=== PATIENT | male | born 1940 | race Caucasian/White ===

== ENCOUNTER 2023-10-16 20:59 | Inpatient (IN) | payer MEDICARE, SELFPAY ==
[2023-10-16 16:15] VITALS: BP 141/51
--- NOTE | 2023-10-16 17:41 | ED.GENMED ---
History of Present Illness
General
Chief Complaint: Musculo-Skeletal Complaint
Time Seen by Provider: 10/16/23 17:22
Travel History
Have you had any contact with someone who has COVID-19?: No
Do you have any symptoms of coronavirus? Fever > 100 degrees, chills, cough, shortness of breath, sore throat, loss of taste or smell, muscle aches, or headache?: No
History of Present Illness
History of Present Illness:
83-year-old male with history of A-fib, insulin-dependent diabetes, and hypertension presents the emergency department upon referral from his plant reliability engineer(Dr. Max) due to osteomyelitis of the left third toe. Has a prior amputation of the left
second toe. Has been following with wound care and apparently had a wound culture obtained late last week that was reportedly positive for MRSA. I do not have these records available to me at this time.
Past History
Past History
ED Past Medical History: Arrthythmia, Cancer, HTN and NIDDM
ED Past Surgical History: Orthopedic
Social History
Tobacco: Non-smoker
Alcohol: None
Drug: None
Personal:
Living: with family
Review of Systems
Review of Systems
Allergies reviewed?: Yes
All Other Systems: ROS reviewed and negative except as documented in HPI and ROS
Phy Exam
Physical Exam
Physical Exam:
GEN: Well appearing, NAD, WDWN
HEENT: Oral mucosa moist, no scleral icterus
Cardiac: Regular rate
Lung: No respiratory distress, no tachypnea
MSK: Status post amputation of the left second toe. Left third toe displays a severely macerated wound with exposed osseous tissue to the dorsal surface, diffuse tissue erythema. Left dorsalis pedis and tibial pulses are strong by Doppler
Skin: Good color, no pallor or jaundice, no rashes
Neuro: AO x3, moves all extremities freely
Psych: Calm, cooperative
Course
Orders/Labs/Results
Orders:
Orders
10/16/23 17:40
CR Foot - Left Min 3 Views Urgent
Comment:
Reason For Exam: L 3rd toe osteo
10/16/23 18:08
CRP [C-Reactive Protein] Urgent
Complete Blood Count/With Diff Urgent
Comprehensive Metabolic Panel Urgent
ESR [Erythrocyte Sed Rate] Urgent
Blood Culture Q30M
CARLITA Source: Blood/Venous
Specimen Description:
10/16/23 18:29
Blood Culture Q30M
CARLITA Source: Blood/Venous
Specimen Description:
10/16/23 19:21
Zosyn 3.375 grams IVPB NOW Piperacillin/Tazo 3.375 Gram [Zosyn] 3.375 gram in 50 ml IV NOW
10/16/23 20:00
*Vancomycin IV Pharmacy to Dose VANCOMYCIN Pharmacy to Dose [VANCOCIN Pharmacy to Dose] 1 each Pharmacy To Prepare [Call Pharmacy To Prepare] 0 ml IV PER PROTOCOL
Abnormal Lab Results
10/16/23
18:08
RBC 3.14 L 10^6/uL
(4.70-6.10)
Hgb 8.8 L g/dL
(13.0-18.0)
Hct 27.7 L %
(39.0-52.0)
MCHC 31.8 L g/dL
(33.0-37.0)
RDW 15.6 H %
(11.5-14.5)
Absolute Monos (auto) 0.8 H 10^3/uL
(0.1-0.6)
Monocytes % 9.5 H %
(1.7-9.3)
Eosinophils % 7.0 H %
(0-6)
ESR 91 H mm/hour
(0-20)
Sodium 133 L mmol/L
(135-145)
Glucose 129 H mg/dl
(70-99)
C-Reactive Protein 20.90 H mg/L
(0.0-10.00)
Albumin 3.3 L g/dl
(3.5-5.0)
10/16/23 18:08
10/16/23 18:08
Vital Signs
Initial and Last Documented VS:
Initial Vital Signs
Temp Pulse Resp BP Pulse Ox
98.0 F 76 18 141/51 100
10/16/23 16:15 10/16/23 16:15 10/16/23 16:15 10/16/23 16:15 10/16/23 16:15
Last Documented Vital Signs
Temp Pulse Resp BP Pulse Ox
98.0 F 72 18 142/70 99
10/16/23 16:15 10/16/23 19:07 10/16/23 19:07 10/16/23 19:07 10/16/23 19:07
MDM/Problems Addressed
MDM/Problems Addressed:
X-rays suggestive of osteolytic disease concerning for osteomyelitis. Will start the patient on broad-spectrum antibiotics, admit to the hospitalist service for further podiatry management
*Critical Care Note
Total Time (30-74mins, 75-104mins- exclusive of procedures): Not Applicable
ED Attending Note
-
Portions of this chart may have been created with voice recognition software.� Occasional wrong word or��sound alike� substitutions may have occurred due to the inherent limitations of voice recognition software.
Discharge Plan
Departure
Patient Disposition: Admit
Date of Disposition: 10/16/23
Time of Disposition: 19:29
Presentation/result/management discussed w/ accepting MD/DO: Hospitalist
Discharge Problem:
Osteomyelitis of third toe of left foot
Prescriptions:
No Action
metformin 500 mg tablet
1,000 mg PO BID@0800,1700
clopidogrel 75 mg tablet
75 mg PO DAILY
simvastatin 40 mg tablet
40 mg PO HS
warfarin 5 mg tablet
5 mg PO SUMOWETHFRSA@1800
losartan 100 mg tablet
100 mg PO DAILY
metoprolol tartrate 25 mg tablet
50 mg PO BID
insulin detemir U-100 100 unit/mL (3 mL) insulin pen
8 unit SC HS
Neupro 2 mg/24 hour patch 24 hour
2 mg topical HS
seqcqyzdy-ycydcdcw-sxyrrlagvh 50-200-200 mg tablet
1 tab PO QID
nifedipine 30 mg tablet extended release 24hr
30 mg PO DAILY
repaglinide 2 mg tablet
1 mg PO MEALS
acetaminophen 500 mg Tablet
500 mg PO Q6H PRN (Reason: mild pain)
warfarin 5 mg tablet
2.5 mg PO TU@1800
cholecalciferol (vitamin D3) [Vitamin D3] 50 mcg (2,000 unit) Tablet
50 mcg PO DAILY
docusate sodium 100 mg Capsule
100 mg PO BID Qty: 0 0RF
enoxaparin 100 mg/mL Syringe
100 mg SC Q12H Qty: 0 0RF
magnesium oxide 500 mg Tablet
500 mg PO DAILY Qty: 0 0RF
sennosides [Senna Laxative] 8.6 mg Tablet
8.6 mg PO HS Qty: 0 0RF
ciprofloxacin HCl 750 mg tablet
750 mg PO BID Qty: 20 0RF
amoxicillin 500 mg capsule
500 mg PO TID Qty: 20 0RF
Referrals:
Zak Hudson MD [Family Provider] -
Interventions
Interventions:
*Risk Screen - Suicide Last Done: 10/16/23 18:16
*General Assessment Last Done: 10/16/23 18:16
*Neglect/Abuse Screening Last Done: 10/16/23 18:16
ED- Fall Risk Assessment Last Done: 10/16/23 18:16
*ED COVID-19 Vaccine History Last Done: 10/16/23 18:16
ED-Musculoskeletal Assessment Last Done: 10/16/23 18:16
[2023-10-16 18:15] VITALS: BMI 32.6
[2023-10-16 18:15] LABS: % Basophils 0.7 % (0-2); % Immature Granulocytes 0.4 % (0-0.5); % Lymphocytes 21.1 % (20.5-51.1); % Monocytes 9.5 % (1.7-9.3); % Neutrophils 61.3 % (42.2-75.2); Absolute Basophils 0.1 10^3/uL (0-0.2); Absolute Eosinophils 0.6 10^3/uL (0-0.7); Absolute Lymphocytes 1.7 10^3/uL (1.2-3.4); Absolute Monocytes 0.8 10^3/uL (0.1-0.6); Hematocrit 27.7 % (39.0-52.0); Hemoglobin 8.8 g/dL (13.0-18.0); Mean Corp Hgb Conc. 31.8 g/dL (33.0-37.0); Mean Corpuscular Volume 88.2 fL (80.0-94.0); Nucleated Red Blood Cells % 0 % (-); Platelet Count 325 10^3/uL (130-400); Red Blood Cell Count 3.14 10^6/uL (4.70-6.10); Red Cell Dist. Width 15.6 % (11.5-14.5); White Blood Cell Count 8.2 10^3/uL (4.8-10.8)
[2023-10-16 18:23] LABS: Erythrocyte Sed Rate 91 mm/hour (0-20)
[2023-10-16 18:33] LABS: ALT (SGPT) < 10 U/L (0-50); AST (SGOT) 17 U/L (17-59); Albumin 3.3 g/dl (3.5-5.0); Alkaline Phosphatase 99 U/L (38-126); Blood Urea Nitrogen 16 mg/dl (9-20); Calcium 8.6 mg/dl (8.4-10.2); Carbon Dioxide 22 mmol/L (22-30); Chloride 107 mmol/L (98-107); Estimated Creatinine Clearance 96 ml/min; Glucose 129 mg/dl (70-99); Potassium 4.5 mmol/L (3.5-5.1); Sodium 133 mmol/L (135-145); Total Bilirubin 0.6 mg/dl (0.2-1.3); Total Protein 6.6 g/dl (6.3-8.2); eGFR > 60.00
[2023-10-16 19:07] VITALS: BP 142/70
--- NOTE | 2023-10-16 19:42 | HPS.HSE ---
Addendum entered and electronically signed by Simon Dominguez MD 10/16/23 21:00:
Recent wound culture from podiatry office grew MRSA.
Addendum entered and electronically signed by Simon Dominguez MD 10/16/23 20:55:
Correction- Patient not on plavix.
Addendum entered and electronically signed by Simon Dominguez MD 10/16/23 20:51:
Patient seen and examined independently with MANAGER OF MEDICAL. 83-year-old male past medical history of atrial fibrillation not on Coumadin anymore, diabetes, diabetic neuropathy, hypertension, prior recent amputation of second left toe, peripheral vascular
disease status post recent shockwave lithotripsy of the posterior tibial artery stenosis, balloon angioplasty of distal posterior tibial artery stenosis/left peroneal artery, Parkinson's disease, obstructive sleep apnea, presenting with infected
third left toe concerning for osteomyelitis. Labs show progressive worsening of hemoglobin from 12 in January to 8.8 at this time.
Foot x-ray pending. Check blood cultures, wound culture. Vancomycin and Zosyn. Podiatry consulted for likely debridement. Continue aspirin, hold Plavix. Vascular surgery consulted. Check iron studies, B12 and folate, fecal occult.
Original Note:
Family Physician
-
Family Physician: Zak Hudson
Chief Complaint
-
left third toe infection
History of Present Illness
83-year-old male with history of A-fib, insulin-dependent diabetes, and hypertension presents the emergency department upon referral from his tobacco drummer(Dr. Max) due to osteomyelitis of the left third toe.� patient stated small wound on third
toe for past few months, which got worse over the months. patient was supposed to get wound care at [facility], not sure if he got it. Has a prior amputation of the left second toe.� Has been following with podiatry. Biopsy obtained last week and
sent home on abx. today he was evaluated by podiatry again. his wound got worse with foul smelling. noted painful, red and swollen. wound culture were positive for MRSA. send them to ER for vascular eval and IV abx. Patient denied any fever chills.
Patient denied headache, dizziness, syncopal episode. Patient denied chest pain or short of breath. Patient denied abdominal pain, nausea, vomiting, diarrhea. Patient denied dysuria hematuria
Patient received a dose of Vanco and Zosyn in ER. Admitting for further management.
Medical History
Past Medical History
Past Medical History: Reports Other
Additional Past Medical History:
Atrial fibs
Hypertension
Type 2 diabetes
Diabetic neuropathy
peripheral vascular disease
Osteomyelitis of left second toe status post amputation on 02/12 for gangrene
Parkinson's
Past Surgical History: Reports Other
Additional Past Surgical History:
Amputation left second toe
Social History
Tobacco: Former Smoker
Alcohol: None
Drug: None
Personal:
Living: Assisted Living
Family History
Family History: Not pertinent
Allergies / Home Medications
Allergies reflects when Allergies were last updated in [facility].
Home Medications with original date entered in [facility]
Allergy/Medication List:
Allergies
Allergy/AdvReac Type Severity Reaction Status Date / Time
No Known Allergies Allergy Verified 10/16/23 18:22
Home Medications
acetaminophen 500 mg tablet 1,000 mg PO Q8H PRN mild pain 02/11/23
carbidopa 50 mg-levodopa 200 mg-entacapone 200 mg tablet 1 tab PO QID Neurological Condition 02/11/23
rotigotine 2 mg/24 hour transdermal 24 hour patch (Neupro) 2 mg topical HS Neurological Condition 02/11/23
simvastatin 40 mg tablet 40 mg PO HS High Cholesterol 02/11/23
aspirin 81 mg chewable tablet 81 mg PO DAILY 10/16/23
diltiazem HCl 30 mg tablet 30 mg PO BID 10/16/23
doxycycline hyclate 100 mg tablet 100 mg PO BID 10/16/23
losartan 50 mg tablet 50 mg PO DAILY 10/16/23
magnesium hydroxide 400 mg/5 mL oral suspension (Milk of Magnesia) 15 ml PO Q72H PRN constipation 10/16/23
melatonin 5 mg tablet 5 mg PO HS 10/16/23
metformin 1,000 mg tablet 1,000 mg PO BID 10/16/23
mupirocin 2 % topical ointment 1 applic topical QPM 10/16/23
sennosides 8.6 mg tablet (Senna Laxative) 17.2 mg PO HS Constipation 10/16/23
Review of Systems
-
Constitutional: Reports No Symptoms
EENT: Reports No Symptoms
Respiratory: Reports No Symptoms
Cardiac: Reports No Symptoms
Abdomen/GI: Reports No Symptoms
: Reports No Symptoms
Musculoskeletal: Reports No Symptoms
Skin: Reports Other (left third toe wound)
Neurological: Reports No Symptoms
Endocrine: Reports No Symptoms
Hematologic/Lymphatic: Reports No Symptoms
Psych: Reports No Symptoms
Physical Exam
Vital Signs
Vital Signs
Temp Pulse Resp BP Pulse Ox
98.0 F 72 18 142/70 99
10/16/23 16:15 10/16/23 19:07 10/16/23 19:07 10/16/23 19:07 10/16/23 19:07
Physical Exam
General: Well Developed, Well Nourished and No Apparent Distress
HEENT: NormoCephalic, Moist mucous membranes and Atraumatic
Respiratory: Clear
Cardiac: S1/S2 and Regular Rhythm; No Murmur or Rub
GI: Soft, Non Tender, Non Distended and Normal Bowel Sounds; No Organomegaly
Rectal: Deferred by Provider
Musculoskeletal: No Clubbing, No Cyanosis and No Edema
Skin: Rash and Other (left third toe wound, red, swollen)
Neuro: AO x 3 and Nonfocal/grossly intact
Psych: Calm
Laboratory Results
-
10/16/23 18:08
10/16/23 18:08
Laboratory Results
Total Bilirubin 0.6 mg/dl (0.2-1.3) 10/16/23 18:08
AST 17 U/L (17-59) 10/16/23 18:08
ALT < 10 U/L (0-50) 10/16/23 18:08
Alkaline Phosphatase 99 U/L (38-126) 10/16/23 18:08
Data Reviewed
-
Lab Data: Labs Reviewed by me
Impression/Plan
-
#osteo of left third toe/hxt of PAD/ hxt of peripheral neuropathy
#hx tof left 2nd to amputation
#hxt of Aortobiiliac angiogram + LLE angiogram + shockwave L PT (3x40mm) + balloon angioplasty L PT and L peroneal artery (03/27/2023)
-wound culture positive for MRSA
-ESR 91, CRP 20.90
-outpatient culture positive for MRSA
-foot x ray pending
-blood culture sent from ER
-zosyn , vanco continued
-podiatry consulted
-vascular consulted
#acute on chronic anemia
-hgb 8.8
-no active bleeding
-ctm
#Chronic atrial fibrillation
-Continue Cardizem
-obtain EKG
#Essential hypertension
-Continue , losartan
#Type 2 diabetes
-Insulin sliding scale
#Hyperlipidemia
-simvastatin
#Peripheral vascular disease
-Plavix ,Statin, asa
#Parkinson's disease
-Continue home rlnfzvdje-tivqyydg-cahudtutdy (Stalevo)
-Continue Neupro
#EAMON- CPAP
#H/O Right eye malignancy -
#Ex Smoker
#Chronic gait dysfunction
#Full code
#DVT prophylaxis� Lovenox
--- NOTE | 2023-10-16 20:05 | PTCARENOTE ---
Received patient from ED into room 2121. Patient ambulated to bed from doorway, patient was unsteady with x1 assist and walker. Patient has wound/infection to L foot third toe. This RN applied dry gauze and secured with tape to cover wound until
further orders can be placed. L foot second toe amputation, R foot second and third toe amputation, R foot great toe half amputation. 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 AAOx2; forgetful to time. Confused at times, bed alarm in
place. Trace edema to b/l LE, clear but diminished lungs. L AC IV. Patient resting comfortably in bed with call ashley within reach.
[2023-10-16] MEDS: ZOSYN 50 IV (20:17)
[2023-10-16] MEDS: VANCOCIN 540 MG IV (21:32)
[2023-10-16 23:11] VITALS: BP 170/82; BMI 30.5
[2023-10-16 23:12] LABS: Iron 38 ug/dl (49-181)
[2023-10-16] MEDS: SENOKOT 17.1999999999999993 MG PO (23:17)
[2023-10-16] MEDS: NEUPRO 2 MG TOPICAL (23:17)
[2023-10-16] MEDS: MELATONIN 5 MG PO (23:17)
[2023-10-16] MEDS: LIPITOR 20 MG PO (23:17)
[2023-10-16 23:22] LABS: Percent Saturation 15 % (20-50); Total Iron Binding Capacity 239 ug/dl (261-462)
[2023-10-16 23:50] VITALS: BMI 30.5
[2023-10-17 00:05] LABS: Ferritin 48.5 ng/ml (17.9-464.0)
[2023-10-17] MEDS: TYLENOL 650 MG PO (00:30)
[2023-10-17 00:36] LABS: Folate 10.8 ng/ml (2.76-20); Vitamin B12 252 pg/ml (239-931)
--- NOTE | 2023-10-17 01:20 | PTCARENOTE ---
Respiratory set up CPAP for patient. Was applied around 00:30 due to waiting for medications. Patient fell asleep quickly and removed his CPAP. This RN woke him up and asked if he wanted it back on, patient refused. Educated importance, pt slightly
confused/disoriented, still refused. Notified respiratory therapist. Turned off machine and moved it away from patient. Patient back to sleep and resting comfortably. Bed alarm in place.
[2023-10-17] MEDS: ZOSYN 50 IV ×4 (01:48→19:57)
[2023-10-17 05:07] VITALS: BMI 30.5
[2023-10-17 06:13] LABS: Hematocrit 27.2 % (39.0-52.0); Hemoglobin 9.1 g/dL (13.0-18.0); Mean Corp Hgb Conc. 33.5 g/dL (33.0-37.0); Mean Corpuscular Hgb 28.3 pg (27.0-31.0); Mean Corpuscular Volume 84.7 fL (80.0-94.0); Mean Platelet Volume 9.8 fL (7.4-10.4); Platelet Count 296 10^3/uL (130-400); Red Blood Cell Count 3.21 10^6/uL (4.70-6.10); Red Cell Dist. Width 15.3 % (11.5-14.5); White Blood Cell Count 8.6 10^3/uL (4.8-10.8)
[2023-10-17 06:35] LABS: Blood Urea Nitrogen 14 mg/dl (9-20); Calcium 8.6 mg/dl (8.4-10.2); Carbon Dioxide 22 mmol/L (22-30); Chloride 110 mmol/L (98-107); Estimated Creatinine Clearance 81 ml/min; Glucose 134 mg/dl (70-99); Sodium 136 mmol/L (135-145); eGFR > 60.00
[2023-10-17 07:03] VITALS: BP 141/72
[2023-10-17 07:16] LABS: Glucose - Point of Care 145 mg/dl (70-99)
--- NOTE | 2023-10-17 07:53 | W.CS.POD ---
Consult Summary - Podiatry
-
Patient known to me from outpatient care.
PMHx includes Parkinsons disease, DM2 with PAD and peripheral neuropathy with LOPS
Presented to my office last week with wound that demonstrated deterioration to his toe-bone culture taken and biopsy which demonstrated MRSA bone and path +chronic and acute OM to the prox phalynx. xray negative. Patient was placed on doxy 100po BID
and follow up 5 d later in office there was noted rapid deterioration to gangrene and cellulitis of the toe. Patient sent to ED for admission for vascular follow up w/Dr Pérez as welll as Amp of the left 3rd toe
NPO orders written. Will add to OR schedule for today, however, may require vascular intervention prior to amp. Will defer to Dr Pérez.
Full consult to follow
--- NOTE | 2023-10-17 08:31 | PHA.VAN.IN ---
Assessment
- Assessment
Renal Function: Appears similar to baseline
Concomitant Antimicrobials: piperacillin/tazobactam
AUC Dosing Plan
- Dosing Variables
Dosing Weight (kg): 99
Dosing CrCl (ml/min): 81
Vd coefficient (L/kg): 0.6-0.7
- Empiric Dosing
Initial / Loading Dose: 2000mg - 10/15 21:32
Maintenance Regimen: Vanc 1000mg Q12H starting at 1800
Estimated AUC (mcg*h/mL): 417 - 487
Estimated Peak (mcg*h/mL): 25 - 29.2
Estimated Trough (mcg/ml): 11.4 - 13.3
Estimated Half Life (H): 9.7
- Monitoring
No levels ordered at this time: consider levels in next few days
Pharmacokinetics Vancomycin I
- -
Patient Age: 83
Patient Sex: Male
Vancomycin Day #: 1
Indication: Skin And Soft Tissue
Requesting Provider: Do Torres
Pertinent Antimicrobial Allergies:
NKDA
Height / Weight:
Height 5 ft 11 in
Actual Weight 99.065 kg
Pertinent Past Medical History: BMI ~30.5, DM2, PAD, Parkinson's
- Vital Signs / Lab Results
Temp Pulse Resp BP Pulse Ox
98.4 F 101 16 141/72 99
10/17/23 07:03 10/17/23 07:03 10/17/23 07:03 10/17/23 07:03 10/17/23 07:03
Lab Results - Hematology
10/16/23 10/17/23
18:08 05:59
WBC 8.2 8.6
Lab Results - Chemistry
10/16/23 10/17/23
18:08 05:59
BUN 16 14
Creatinine 0.7 0.8
Estimated Creat Clear 96 81
Albumin 3.3 L
[2023-10-17] MEDS: NOVOLOG FLEXPEN-LOW RESISTANCE SC ×3 (08:41→12:50)
[2023-10-17] MEDS: LOW STRENGTH ASPIRIN 81 MG PO (08:42)
[2023-10-17] MEDS: COZAAR 50 MG PO (08:42)
[2023-10-17] MEDS: SINEMET CR 50/200 (EXTENDED RELEASE) 1 TABLET PO ×4 (08:42→21:56)
[2023-10-17] MEDS: GLUCOPHAGE 1000 MG PO ×2 (08:42→19:56)
[2023-10-17] MEDS: HEPARIN 5000 UNITS SC ×2 (08:43→19:55)
[2023-10-17] MEDS: COMTAN 200 MG PO ×4 (08:44→21:56)
[2023-10-17] MEDS: CARDIZEM 30 MG PO ×2 (08:45→19:56)
[2023-10-17 09:49] LABS: Glycohemoglobin (HgbA1c) 6.6 % (4.0-5.6)
--- NOTE | 2023-10-17 10:10 | CON.VAS ---
Addendum entered and electronically signed by Carson Ennis MD 10/17/23 11:33:
Seen and examined with ADAN Mario. Agree with findings as noted below. 83-year-old male with extensive medical history as noted below. Known to our service. History of left-sided vascular intervention at [facility]. Subsequent intervention
here. Following that he was able to heal left second toe amputation. Then more recently patient developed left third toe gangrenous/ischemic changes. Per patient he thought he had another intervention subsequently at [place]. On exam he has
bilateral palpable femoral pulses. Nonpalpable distally. Left foot/third toe as pictured below. Note the changes compared to last office visit. Plan/patient with gangrene/likely exposed bone third toe. Likely will require third toe amputation.
Question perfusion adequacy for wound healing. Obtain noninvasive arterial lower extremity imaging. Then we will plan angiography likely Sunday. Consult podiatry for toe management.
Original Note:
Medical History
-
History of Present Illness:
83 years old male with significant past medical history for hypertension, DM, PAD, and Parkinson, who presented to [facility] on 10/15 reporting nonhealing left third toe wound for 'many months'. Patient is a poor historian, but does admit
to recent angiogram with intervention on the left side at [facility] for the current left toe wound. Last admission patient underwent left lower extremity intervention by Dr. Pérez. He follows/followed with Dr. Natividad Monsalve at [place]
vascular surgery. Non-invasive studies last completed at [facility] in July. Patient last seen in our vascular office September 03, 2023. Image below from office note. The following image from today's consultation.
Vascular history:
02/07/23- LLE [facility]
03/27/23- Shockwave left posterior tibial artery stenosis (3 mm x 40 mm shockwave balloon), Balloon angioplasty to distal posterior tibial artery stenoses (3 mm x 40 mm angioplasty balloon), Balloon angioplasty to left peroneal artery stenoses (3 mm
x 40 mm angioplasty balloon)
07/2023(unsure of date)- agram with intervention at outside hospital-records requested
Vascular consult today for nonhealing left third toe wound. Patient seen at bedside this a.m. with Dr. Ennis.
Left 3rd toe (from 09/03/23 office visit)
Left third toe TODAY
Past Medical History
Past Medical History: Arrhythmias (afib, not on coumadin anymore?), Cancer, HTN, IDDM and Other (PAD, parkinsons)
Past Surgical History: Other (Right 1-3rd toe amps, left 2nd toe amp)
Social History
Tobacco: Former Smoker
Alcohol: None
Drug: None
Personal:
Living: Assisted Living
Employment: Retired
Family History
Family History: Reviewed & Not Pertinent
Allergies / Home Medications
Allergy/AdvReac Type Severity Reaction Status Date / Time
No Known Allergies Allergy Verified 10/16/23 18:22
Medication Instructions Recorded Confirmed Type
acetaminophen 500 mg tablet 1,000 mg PO Q8H PRN mild pain 02/11/23 10/16/23 History
carbidopa 50 mg-levodopa 200 1 tab PO QID Neurological Condition 02/11/23 10/16/23 History
mg-entacapone 200 mg tablet
rotigotine 2 mg/24 hour 2 mg topical HS Neurological 02/11/23 10/16/23 History
transdermal 24 hour patch (Neupro) Condition
simvastatin 40 mg tablet 40 mg PO HS High Cholesterol 02/11/23 10/16/23 History
aspirin 81 mg chewable tablet 81 mg PO DAILY 10/16/23 10/16/23 History
diltiazem HCl 30 mg tablet 30 mg PO BID 10/16/23 10/16/23 History
doxycycline hyclate 100 mg tablet 100 mg PO BID 10/16/23 10/16/23 History
losartan 50 mg tablet 50 mg PO DAILY 10/16/23 10/16/23 History
magnesium hydroxide 400 mg/5 mL 15 ml PO Q72H PRN constipation 10/16/23 10/16/23 History
oral suspension (Milk of Magnnan)
melatonin 5 mg tablet 5 mg PO HS 10/16/23 10/16/23 History
metformin 1,000 mg tablet 1,000 mg PO BID 10/16/23 10/16/23 History
mupirocin 2 % topical ointment 1 applic topical QPM 10/16/23 10/16/23 History
sennosides 8.6 mg tablet (Senna 17.2 mg PO HS Constipation 10/16/23 10/16/23 History
Laxative)
Review of Systems
-
History Source: Patient
All other systems: Negative unless noted
Constitutional: Reports No Symptoms
EENT: Reports No Symptoms
Respiratory: Reports No Symptoms
Cardiac: Reports No Symptoms
Vascular: Denies Leg Pain / Claudication
Abdomen/GI: Reports No Symptoms
: Reports No Symptoms
Musculoskeletal: Reports Edema
Skin: Reports Other (Left third toe wound)
Neurological: Reports No Symptoms
Endocrine: Reports No Symptoms
Physical Exam
Vital Signs
Temp Pulse Resp BP Pulse Ox
98.4 F 101 16 141/72 99
10/17/23 07:03 10/17/23 08:45 10/17/23 07:03 10/17/23 08:45 10/17/23 07:03
Lab Results
10/17/23 05:59
10/17/23 05:59
Physical Exam
General: No Apparent Distress
HEENT: Normocephalic and Atraumatic
Respiratory: Non Labored Respirations
Cardiac: Negative JVD
GI: Soft, Non Tender and Non Distended
Musculoskeletal: No Clubbing, No Cyanosis and Edema (BL LE +1)
Skin: Warm, Dry and Other (See images above)
Neuro: Awake, Alert and Oriented
Psych: Calm
Pulses: Bilateral Femoral: +2, Bilateral Popliteal: +1 and Bilateral Posterior Tibial: Doppler (nonpalpable)
Assessment / Plan
-
83-year-old male with left third toe nonhealing wound, known PAD
Plan:
-Arterial US, will follow-up after study
-Podiatry following
-Antibiotics
-Local wound care
-Seen and assessed with Dr. Ennis
--- NOTE | 2023-10-17 11:32 | W.PN.HOSP.TC ---
Today's Communication/Plan
-
see A/P
Assessment / Plan
Assessment / Plan
83-year-old male past medical history of atrial fibrillation not on Coumadin anymore, diabetes, diabetic neuropathy, hypertension, prior recent amputation of second left toe, peripheral vascular disease status post recent shockwave lithotripsy of
the posterior tibial artery stenosis, balloon angioplasty of distal posterior tibial artery stenosis/left peroneal artery, Parkinson's disease, obstructive sleep apnea, presented with infected third left toe concerning for osteomyelitis.�Labs show
progressive worsening of hemoglobin from 12 in January to 8.8 at this time.�
A/P:
# L foot cellulitis with 2nd metatarsal acute osteomyelitis, 3rd toe acute osteomyelitis
# h/o PAD/ peripheral neuropathy
# h/o left 2nd toe amputation
Foot XR with 2nd metatarsal acute osteomyelitis, 3rd toe acute osteomyelitis
vascular on board, check arterial LE US and plan angiography likely Sunday.�
Podiatry on board, plan for OR
ID consulted
Follow blood Cx
zosyn , vanco was started, cont for now
# Chronic atrial fibrillation
Continue Cardizem
# Essential hypertension
Continue Cardizem, losartan
BP controlled
# Type 2 diabetes
Insulin sliding scale
# Hyperlipidemia
simvastatin
# Peripheral vascular disease
ASA, Plavix, Statin
# Parkinson's disease
Continue home thquqokcq-dzznuhmv-iyptenocdw (Stalevo)
Continue Neupro
# EAMON- CPAP
# H/O Right eye malignancy
# Ex Smoker
# Chronic gait dysfunction
Full code
DVT prophylaxis� Lovenox
DW vascular
DW Podiatry
total time spent 51 min
Anticipated Discharge: > 48 hours
Subjective/Interval History
-
Date of Service: October 17, 2023
Objective Data
-
Labs:
Laboratory Results
10/17/23
05:59
WBC 8.6
Hgb 9.1 L
Hct 27.2 L
Plt Count 296
Sodium 136
Potassium 4.0
Chloride 110 H
Carbon Dioxide 22
BUN 14
Creatinine 0.8
Glucose 134 H
Calcium 8.6
Vital Signs:
Vital Signs
Temp Pulse Resp BP Pulse Ox
36.9 C 101 16 141/72 99
10/17/23 07:03 10/17/23 08:45 10/17/23 07:03 10/17/23 08:45 10/17/23 07:03
I&O
10/16/23 10/17/23 10/18/23
06:59 06:59 06:59
Intake Total 480 / 480
Output Total 700 / 700
Balance -220 / -220
Review of Systems
-
All other systems: Reviewed and negative
Physical Exam
-
General: Well Developed, Well Nourished, No Apparent Distress, Comfortable and Conversant; Negative Respiratory Distress
HEENT: Normocephalic, Atraumatic, Nose Appears Normal and Ears Appear Normal; Negative Oxygen
Respiratory: Clear to Auscultation and Non Labored Respirations; Negative Accessory Resp Muscle Use
Cardiac: Regular Rhythm and S1/S2
GI: Soft, Nontender, Nondistended and Normal Bowel Sounds
Skin: Warm, Dry and Other (L necrotic third toe )
Neuro: Awake, Alert, Oriented, AO x 3 and Nonfocal/Grossly Intact
Psych: Calm and Intact Judgement/Insight
Data Reviewed
-
Diagnostic Radiology: Report Reviewed by me
Labs: Labs Reviewed by me
--- NOTE | 2023-10-17 12:40 | CON.MD ---
Consultation - Medical
-
Consultation performed 10/17/23 by Devi Max DPM
Consult requested 10/16/2023
Medical History
Chief Complaint
left foot gangrene
History of Present Illness
This is an 83 year old male with significant past medical history for hypertension, DM, PAD, and Parkinson, who I sent to [facility] ED on 10/15 from my office after rapid deterioration and failed outpatient treatment of wound left 3rd toe.
On 10/10 bone biopsy/culture was noted to return + MRSA. Patient did not have cellulitis or gangrene at that time however bone was palpable and exposed and pt placed on DOXY 100 po BID, He had an appt pending w/Dr Pérez for 10/24, but was seen 10/15
for office follow up with cellulitis and gangrene left 3rd toe and sent to the ED. I will follow for amputation of hte left 3rd toe
Past Medical / Surgical History
Prev toe amps as result of OM to toes and PAD, REvasc to B/L LEs in the past, DM2 with DPN and LOPS, Parkinsons disease, Afib
Medications
�Medication �Instructions �Recorded �Confirmed �Type
acetaminophen 500 mg tablet 1,000 mg PO Q8H PRN mild pain 02/11/23 10/16/23 History
carbidopa 50 mg-levodopa 200 1 tab PO QID Neurological Condition 02/11/23 10/16/23 History
mg-entacapone 200 mg tablet � � � �
rotigotine 2 mg/24 hour 2 mg topical HS Neurological 02/11/23 10/16/23 History
transdermal 24 hour patch (Neupro) Condition � � �
simvastatin 40 mg tablet 40 mg PO HS High Cholesterol 02/11/23 10/16/23 History
aspirin 81 mg chewable tablet 81 mg PO DAILY 10/16/23 10/16/23 History
diltiazem HCl 30 mg tablet 30 mg PO BID 10/16/23 10/16/23 History
doxycycline hyclate 100 mg tablet 100 mg PO BID 10/16/23 10/16/23 History
losartan 50 mg tablet 50 mg PO DAILY 10/16/23 10/16/23 History
magnesium hydroxide 400 mg/5 mL 15 ml PO Q72H PRN constipation 10/16/23 10/16/23 History
oral suspension (Milk of Magnesia) � � � �
melatonin 5 mg tablet 5 mg PO HS 10/16/23 10/16/23 History
metformin 1,000 mg tablet 1,000 mg PO BID 10/16/23 10/16/23 History
mupirocin 2 % topical ointment 1 applic topical QPM 10/16/23 10/16/23 History
sennosides 8.6 mg tablet (Senna 17.2 mg PO HS Constipation 10/16/23 10/16/23 History
Laxative) � � � �
Physical Exam
Vital Signs
Temp Pulse Resp BP Pulse Ox
�98.4 F �101 �16 �141/72 �99
�10/17/23 07:03 �10/17/23 08:45 �10/17/23 07:03 �10/17/23 08:45 �10/17/23 07:03
Lab Results
10/17/23 05:59�
10/17/23 05:59�
Physical Exam
Allergies
NKDA
Social / Family History
SH-
Presently resides at [facility] since DC from [facility]. . Former smoker, soc ETOH
Review of Systems
-
History Source: Patient
All other systems: Negative unless noted
Constitutional: Reports No Symptoms
EENT: Reports No Symptoms
Respiratory: Reports No Symptoms
Cardiac: Reports No Symptoms
Vascular: Denies Leg Pain / Claudication
Abdomen/GI: Reports No Symptoms
: Reports No Symptoms
Musculoskeletal: Reports Edema
Skin: Reports Other (Left third toe wound)
Neurological: Reports No Symptoms
Endocrine: Reports No Symptoms
Vital Signs / Labs
-
Vital Signs and Labs:
Temp Pulse Resp BP Pulse Ox
98.4 F 101 16 141/72 99
10/17/23 07:03 10/17/23 08:45 10/17/23 07:03 10/17/23 08:45 10/17/23 07:03
10/17/23 05:59
10/17/23 05:59
10/16/23 10/17/23 10/17/23
18:08 05:59 07:15
RBC 3.14 L 3.21 L
Hgb 8.8 L 9.1 L
Hct 27.7 L 27.2 L
MCHC 31.8 L
RDW 15.6 H 15.3 H
Absolute Monos (auto) 0.8 H
Monocytes % 9.5 H
Eosinophils % 7.0 H
ESR 91 H
Sodium 133 L
Chloride 110 H
Glucose 129 H 134 H
Hemoglobin A1c 6.6 H
Iron 38 L
TIBC 239 L
% Saturation 15 L
C-Reactive Protein 20.90 H
Albumin 3.3 L
POC Glucose 145 H
Physical Exam
Vital Signs
Vital Signs
Temp Pulse Resp BP Pulse Ox
98.4 F 101 16 141/72 99
10/17/23 07:03 10/17/23 08:45 10/17/23 07:03 10/17/23 08:45 10/17/23 07:03
Physical Exam
General:
AAo x 3, elderly in NAD, conversant
Other: LE FOCUSED exam: Pedal pules are non palpable, integ dry, scaly, poor cap refill. amp left 2nd toe, right 2,3 toes. Gangrene left 3rd toe with exposed bone, improved cellulitis left foot
Heels intact and no other breakdown to legs/feet at this time
Assessemnt/Plan
-
DM2 with PAD- Dr Ennis to follow, sched non invasives this week and angio
DM2 with DPN and LOPS
Gangrene and osteomyelitis left 3rd toe- will cancel surgery for tday and await revasc if needed to give best chance of healing the amp site.
Will follow for timing of amp this week fri/sat
[2023-10-17 12:48] LABS: Glucose - Point of Care 128 mg/dl (70-99)
--- NOTE | 2023-10-17 13:18 | CON.ID ---
Consultation
-
Date/Time Consultation Requested: 10/17/23 7:38
Date/Time Consultation Performed: 10/17/23 13:33
Requesting Provider: Dr Weldon
Performing Provider: Dr Camargo
Reason for Consultation: diabetic foot infection
Chief Complaint / Past History
Chief Complaint
left third toe infection
History of Present Illness
Mr Baird is an 83 year old male with history notable for osteomyelitis of the L third toe, previous L second toe amputation, diabetic foot infection, DM2 who presented here yesterday for a several month history of a wound on the third toe. 10/10
bone biopsy/culture with MRSA outpatinet; there was palpable bone but no cellulitis or gangrene; he was started on doxycycline 100 mg PO BID; he had a pending vascular surgery appointment however developed progression outpatient and was referred to
the ER.Recently he has noted increased redness and swelling of the toe, a supericial wound culture grew MRSA. No fevers or chills. No: chest pain, shortness of breath, abdominal pain, nausea, vomiting, diarrhea, dysuria or hematuria.
Since arrival here he has been afebrile, bp stable, wbc 8.6, hgb 9.1, plt 296, no left shift,esr 91, cr 0.8, a1c 6.6, crp 20, an arterial study has been done but not yet read, foot xray: 'Progressive osseous erosion of the lateral side of the head
of the 2nd metatarsal suspicious for acute osteomyelitis. Previous amputation of the left 2nd toe. 2. � Plantar dislocation of the distal phalanx of the 3rd toe and subluxation of the middle phalanx with severe widening of the lateral side of the
PIP joint. Suspected acute osteomyelitis in the dorsal cortex of the middle phalanx of the 3rd toe.
3. � Severe cellulitis throughout the left foot.'
Past History
Additional Past Medical History:
afib, Cancer, HTN, IDDM and Other (PAD, parkinsons)
Additional Past Surgical History:
(Right 1-3rd toe amps, left 2nd toe amp)
vascular intervention on the L leg
Allergy History:
No Known Allergies Allergy (Verified 10/16/23 18:22)
Medications Reviewed: Yes
Social History
Tobacco: Former Smoker
Alcohol: None
Drug: None
Family History
Family History: Not Pertinent
Review of Systems
Review of Systems
General: Negative Fever or Chills
All systems: All other systems were reviewed and were negative
Vital Signs
Temp Pulse Resp BP Pulse Ox
98.4 F 101 16 141/72 99
10/17/23 07:03 10/17/23 08:45 10/17/23 07:03 10/17/23 08:45 10/17/23 07:03
Physical Exam
Physical Exam
Constitutional: No Acute Distress, Chronically Ill and Obese
Cardiovascular: Regular Rate and S1/S2; Negative Murmur or Rub
Pulmonary: Clear and Symmetric; Negative Wheezes, Rales or Rhonchi
Gastrointestinal: Soft, Non Tender, Non Distended and Normal Bowel Sounds
Skin: Warm and Dry; Negative Rash or Jaundice
Lab / Diagnostic Study Results
10/17/23 05:59
10/17/23 05:59
Abs Immat Gran (auto) 0.0 10^3/uL (0-0.05) 10/16/23 18:08
Absolute Neuts (auto) 5.0 10^3/uL (1.4-6.5) 10/16/23 18:08
Absolute Lymphs (auto) 1.7 10^3/uL (1.2-3.4) 10/16/23 18:08
Absolute Monos (auto) 0.8 10^3/uL (0.1-0.6) H 10/16/23 18:08
Absolute Basos (auto) 0.1 10^3/uL (0-0.2) 10/16/23 18:08
Immature Gran % 0.4 % (0-0.5) 10/16/23 18:08
Neutrophils % 61.3 % (42.2-75.2) 10/16/23 18:08
Lymphocytes % 21.1 % (20.5-51.1) 10/16/23 18:08
Monocytes % 9.5 % (1.7-9.3) H 10/16/23 18:08
Eosinophils % 7.0 % (0-6) H 10/16/23 18:08
Basophils % 0.7 % (0-2) 10/16/23 18:08
ESR 91 mm/hour (0-20) H 10/16/23 18:08
C-Reactive Protein 20.90 mg/L (0.0-10.00) H 10/16/23 18:08
Microbiology Results
Micro:
10/17/23 00:12 MRSA Screen - Pending
Nose
10/16/23 18:29 Blood Culture - Pending
Blood/Venous
10/16/23 18:08 Blood Culture - Pending
Blood/Venous
Assessment / Plan
Suspected Osteomyelitis 3rd distal phalanx, middle phalanx
- bone culture by report with MRSA
Suspected osteomyelitis 2nd metarasal head - lateral aspect
Cellulitis
Dm2
PAD
- my office will request the bone culture results
- note concern for osteomyelitis of the 3nd phalanx and 2nd metatarsal head; could consider MRI if clinical picture unclear
- mrsa screen in progress - even if negative would not stop mrsa coverage given recent report
- blood cultures x2 in progress
- a1c pending
- continue vancomycin and zosyn for now - may require a long course of IV antibiotics if there is concern for residual infection after the 3rd digit amputation
- follow clinically
--- NOTE | 2023-10-17 13:43 | CM ---
Addendum entered by Newton Montenegro 10/17/23 16:19:
HH [facility]. Donna is following patient # [phone].
Original Note:
Attempted initial assessment with patient who was unable to answer some questions and deferred to daughter, Destiny, who is also POA. Initial assessment completed with Destiny. Patient and reside in [facility] in [place]. They reside in a 3rd floor apartment in an elevator building with no stairs to enter. and 4 daughters are support system along with [facility] staff. Patient has a rollator, RW, W/CH and SC. Patient had HH services, VN and PT, through
[facility] ([phone]) through the [facility].
Patient has been in and out of hospital and SNF's for a few months. Most recently, he was at [facility] immediately prior to admission to . He has had some cognitive difficulties and forgetfulness recently. Destiny is considering patient go to a
different SNF instead of [facility] after discharge. Pharmacy is [facility] through the [facility] and PCP is Dr. Anastacio Morales. MD listed in records as PCP is the MD at [facility].
Destiny said patient was doing fairly well at [facility] in PT: Tolerated 45 minutes of therapy and walked 150 feet but needed alot of supervision for safety awareness.
Destiny's # is [phone]. [place] [phone] at this time. Prefers waiting until surgery and therapy evaluation has been done.
Anticipate needing SNF.
[2023-10-17 15:03] VITALS: BP 123/92
[2023-10-17 17:08] LABS: Glucose - Point of Care 182 mg/dl (70-99)
[2023-10-17] MEDS: VANCOCIN 200 IV (17:27)
[2023-10-17] MEDS: BACTROBAN 2% OINTMENT TOPICAL ×2 (18:07→18:13)
[2023-10-17] MEDS: NOVOLOG FLEXPEN-LOW RESISTANCE 1 UNITS SC (18:08)
[2023-10-17] MEDS: NEUPRO 2 MG TOPICAL (21:53)
[2023-10-17] MEDS: MELATONIN 5 MG PO (21:56)
[2023-10-17] MEDS: SENOKOT 17.1999999999999993 MG PO (21:56)
[2023-10-17] MEDS: LIPITOR 20 MG PO (21:56)
[2023-10-17 22:01] LABS: Glucose - Point of Care 225 mg/dl (70-99)
[2023-10-17 23:15] VITALS: BP 143/77
[2023-10-18] MEDS: ZOSYN 50 IV ×4 (01:59→20:04)
[2023-10-18] MEDS: VANCOCIN 200 IV ×2 (05:42→17:48)
[2023-10-18 06:39] LABS: Hematocrit 26.8 % (39.0-52.0); Hemoglobin 8.6 g/dL (13.0-18.0); Mean Corp Hgb Conc. 32.1 g/dL (33.0-37.0); Mean Corpuscular Volume 87.3 fL (80.0-94.0); Mean Platelet Volume 10.2 fL (7.4-10.4); Platelet Count 282 10^3/uL (130-400); Red Blood Cell Count 3.07 10^6/uL (4.70-6.10); Red Cell Dist. Width 15.5 % (11.5-14.5); White Blood Cell Count 7.8 10^3/uL (4.8-10.8)
[2023-10-18 07:00] VITALS: BP 120/66
[2023-10-18 07:08] LABS: Blood Urea Nitrogen 16 mg/dl (9-20); Calcium 8.4 mg/dl (8.4-10.2); Carbon Dioxide 22 mmol/L (22-30); Chloride 108 mmol/L (98-107); Estimated Creatinine Clearance 81 ml/min; Glucose 106 mg/dl (70-99); Sodium 135 mmol/L (135-145); eGFR > 60.00
[2023-10-18] MEDS: LOW STRENGTH ASPIRIN 81 MG PO (07:54)
[2023-10-18 07:55] LABS: Glucose - Point of Care 128 mg/dl (70-99)
[2023-10-18] MEDS: CARDIZEM 30 MG PO ×2 (07:55→20:04)
[2023-10-18] MEDS: COZAAR 50 MG PO (07:57)
[2023-10-18] MEDS: SINEMET CR 50/200 (EXTENDED RELEASE) 1 TABLET PO ×4 (07:57→21:21)
[2023-10-18] MEDS: COMTAN 200 MG PO ×4 (07:57→21:21)
[2023-10-18] MEDS: GLUCOPHAGE 1000 MG PO ×2 (07:58→20:04)
[2023-10-18] MEDS: HEPARIN 5000 UNITS SC (07:59)
[2023-10-18] MEDS: NOVOLOG FLEXPEN-LOW RESISTANCE SC (08:06)
--- NOTE | 2023-10-18 08:15 | PHA.VAN.FU ---
Vancomycin Assessment / Plan
- Assessment
Renal Function: Stable
WBC's are: WNL
In the past 24 hrs, patient has been: Afebrile
Concomitant Antimicrobials: piperacillin/tazobactam
- Dosing Plan
Continue: Vanc 1000mg Q12H
- Monitoring Plan
Peak Level: 10/17 20:30
Trough Level: 10/18 05:30
Monitoring Comments: levels to be drawn after 3rd maintenance dose
- Follow Up
Pharmacy will continue to follow.
Vancomycin Follow UP
- -
Patient Age: 83
Patient Sex: Male
Vancomycin Day #: 2
Indication: Skin And Soft Tissue
Requesting Provider: Do Camargo
Pertinent Antimicrobial Allergies:
NKDA
Height / Weight:
Height 5 ft 11 in
Actual Weight 99.065 kg
Pertinent Past Medical History: BMI ~30.5, DM2, PAD, Parkinson's
- Vital Signs / Lab Results
Temp Pulse Resp BP Pulse Ox
97.4 F 83 18 120/66 99
10/18/23 07:00 10/18/23 07:57 10/18/23 07:00 10/18/23 07:57 10/18/23 07:00
Lab Results - Hematology
10/16/23 10/17/23 10/18/23
18:08 05:59 05:06
WBC 8.2 8.6 7.8
Lab Results - Chemistry
10/16/23 10/17/23 10/18/23
18:08 05:59 05:06
BUN 16 14 16
Creatinine 0.7 0.8 0.8
Estimated Creat Clear 96 81 81
Albumin 3.3 L
Microbiology Results
10/16/23 18:29 Blood Culture - Preliminary
Blood/Venous No Growth in 24 hours- Final report to follow
10/16/23 18:08 Blood Culture - Preliminary
Blood/Venous No Growth in 24 hours- Final report to follow
[2023-10-18 09:19] VITALS: BP 144/61; PULSE 74; O2SAT 100
[2023-10-18 09:23] VITALS: BP 144/61; PULSE 74; O2SAT 100
--- NOTE | 2023-10-18 09:29 | PTOTSP ---
pt currently demonstrates ability to complete simple ADLs, functional transfers, ambulation with supervision assistance. recommend home with C after hospitalization at this time. no acute OT needs identified, will sign off.
--- NOTE | 2023-10-18 11:02 | W.PN.HOSP.TC ---
Today's Communication/Plan
-
see A/P
Assessment / Plan
Assessment / Plan
83-year-old male past medical history of atrial fibrillation not on Coumadin anymore, diabetes, diabetic neuropathy, hypertension, prior recent amputation of second left toe, peripheral vascular disease status post recent shockwave lithotripsy of
the posterior tibial artery stenosis, balloon angioplasty of distal posterior tibial artery stenosis/left peroneal artery, Parkinson's disease, obstructive sleep apnea, presented with infected third left toe concerning for osteomyelitis.�Labs show
progressive worsening of hemoglobin from 12 in January to 8.8 at this time.�
A/P:
# L foot cellulitis with 2nd metatarsal acute osteomyelitis, 3rd toe acute osteomyelitis
# h/o PAD/ peripheral neuropathy
# h/o left 2nd toe amputation
Foot XR with 2nd metatarsal acute osteomyelitis, 3rd toe acute osteomyelitis
vascular on board
arterial LE US confirmed Left infrapopliteal artery disease.
For angiography likely Sunday.�
Podiatry on board, plan for OR after angio
cont zosyn , vanco
blood Cx neg
ID on board
# Chronic atrial fibrillation
Continue Cardizem
Not on AC due to frequent fall
# Essential hypertension
Continue Cardizem, losartan
BP controlled
# Type 2 diabetes
Insulin sliding scale
# Hyperlipidemia
simvastatin
# Peripheral vascular disease
ASA, Plavix, Statin
# Parkinson's disease
Continue home [id number] (Stalevo)
Continue Neupro
# EAMON- CPAP
# H/O Right eye malignancy
# Ex Smoker
# Chronic gait dysfunction
Full code
DVT prophylaxis� Lovenox SQ
Anticipated Discharge: > 48 hours
Subjective/Interval History
-
Date of Service: October 18, 2023
Objective Data
-
Labs:
Laboratory Results
10/18/23
05:06
WBC 7.8
Hgb 8.6 L
Hct 26.8 L
Plt Count 282
Sodium 135
Potassium 4.0
Chloride 108 H
Carbon Dioxide 22
BUN 16
Creatinine 0.8
Glucose 106 H
Calcium 8.4
Vital Signs:
Vital Signs
Temp Pulse Resp BP Pulse Ox
36.3 C 83 18 120/66 99
10/18/23 07:00 10/18/23 07:57 10/18/23 07:00 10/18/23 07:57 10/18/23 10:23
I&O
10/17/23 10/18/23 10/19/23
06:59 06:59 06:59
Intake Total 480 / 480 1320 / 1320
Output Total 700 / 700 1550 / 1550
Balance -220 / -220 -230 / -230
Review of Systems
-
All other systems: Reviewed and negative
Physical Exam
-
General: Well Developed, Well Nourished, No Apparent Distress, Comfortable and Conversant; Negative Respiratory Distress
HEENT: Normocephalic, Atraumatic, Nose Appears Normal and Ears Appear Normal; Negative Oxygen
Respiratory: Clear to Auscultation and Non Labored Respirations; Negative Accessory Resp Muscle Use
Cardiac: Regular Rhythm and S1/S2
GI: Soft, Nontender, Nondistended and Normal Bowel Sounds
Skin: Warm, Dry and Other (L necrotic third toe )
Neuro: Awake and Alert
Psych: Calm and Intact Judgement/Insight
Data Reviewed
-
Diagnostic Radiology: Report Reviewed by me
Labs: Labs Reviewed by me
[2023-10-18 12:09] LABS: Glucose - Point of Care 178 mg/dl (70-99)
[2023-10-18] MEDS: NOVOLOG FLEXPEN-LOW RESISTANCE 1 UNITS SC (12:35)
--- NOTE | 2023-10-18 13:19 | CM ---
IV antibiotics. Anticipate surgical amputation L 3rd toe. Initial therapy eval for HH PT but will re-eval after surgical intervention. Discharge Plan of Care: TBD. Lives at home with but was admitted to from [facility].
[2023-10-18] MEDS: FLUSH (NSS) 1 FLUSH IV (14:08)
--- NOTE | 2023-10-18 14:41 | W.PN.UPDATE ---
Update Note
Progress Note Update
Patient seen at bedside, informed of plan to proceed with left lower extremity arteriogram tomorrow with Dr. Jaxson Pérez III, all questions and concerns addressed. Will make n.p.o. at midnight. Confirmed with Dr. Monsalve's office at [facility] that
he has not had any recent arteriogram and last procedure was a left lower extremity arteriogram in January,.
[2023-10-18 15:06] VITALS: BP 134/71
--- NOTE | 2023-10-18 16:53 | W.PN.ID1 ---
Date of Service
Date of Service: October 18, 2023
Today's Communication
- continue vancomycin and zosyn for now - may require a long course of IV antibiotics if there is concern for residual infection after the 3rd digit amputation
Assessment / Plan
Suspected Osteomyelitis 3rd distal phalanx, middle phalanx
- bone culture by report with MRSA
Suspected osteomyelitis 2nd metarasal head - lateral aspect
Cellulitis
Dm2
PAD
- await bone culture results
- note concern for osteomyelitis of the 3nd phalanx and 2nd metatarsal head; could consider MRI if clinical picture unclear
- mrsa screen in progress - even if negative would not stop mrsa coverage given recent report
- blood cultures x2 in progress - NGTD
- a1c 6.6
- continue vancomycin and zosyn for now - may require a long course of IV antibiotics if there is concern for residual infection after the 3rd digit amputation
- follow clinically
Chief Complaint
-: Other (osteomyelitis, gangrene )
Subjective / Review of Systems
afebrile
bp stable
without leukocytosis, cr stable
no complaints
Vital Signs / Physical Exam
Vital Signs
Vital Signs
Temp Pulse Resp BP Pulse Ox
97.0 F 92 17 134/71 99
10/18/23 15:06 10/18/23 15:06 10/18/23 15:06 10/18/23 15:06 10/18/23 15:06
Physical Exam
Constitutional: No Acute Distress
Cardiovascular: Regular Rate and S1/S2; Negative Murmur or Rub
Pulmonary: Clear and Symmetric; Negative Wheezes or Rales
Gastrointestinal: Soft, Non Tender, Non Distended and Normal Bowel Sounds
Skin: Warm, Dry and Other (stable gangrene of the third digit); Negative Jaundice
Objective Data
Lab Data
Lab Results
10/18/23 05:06
10/18/23 05:06
ESR 91 mm/hour (0-20) H 10/16/23 18:08
Estimated Creat Clear 81 ml/min 10/18/23 05:06
Total Bilirubin 0.6 mg/dl (0.2-1.3) 10/16/23 18:08
AST 17 U/L (17-59) 10/16/23 18:08
ALT < 10 U/L (0-50) 10/16/23 18:08
Alkaline Phosphatase 99 U/L (38-126) 10/16/23 18:08
C-Reactive Protein 20.90 mg/L (0.0-10.00) H 10/16/23 18:08
Most recent labs reviewed.
Micro Results:
10/17/23 00:12 MRSA Screen - Preliminary
Nose
10/16/23 18:29 Blood Culture - Preliminary
Blood/Venous No Growth in 24 hours- Final report to follow
10/16/23 18:08 Blood Culture - Preliminary
Blood/Venous No Growth in 24 hours- Final report to follow
[2023-10-18] MEDS: LOVENOX 40 MG SC (17:47)
[2023-10-18] MEDS: BACTROBAN 2% OINTMENT TOPICAL (17:47)
[2023-10-18 17:54] LABS: Glucose - Point of Care 229 mg/dl (70-99)
[2023-10-18] MEDS: NOVOLOG FLEXPEN-LOW RESISTANCE 2 UNITS SC (18:01)
[2023-10-18 21:00] LABS: Vancomycin Peak 21.7 ug/ml (18-26)
[2023-10-18] MEDS: MELATONIN 5 MG PO (21:21)
[2023-10-18] MEDS: LIPITOR 20 MG PO (21:21)
[2023-10-18] MEDS: SENOKOT 17.1999999999999993 MG PO (21:21)
[2023-10-18] MEDS: NEUPRO 2 MG TOPICAL (21:22)
[2023-10-18 22:16] LABS: Glucose - Point of Care 240 mg/dl (70-99)
[2023-10-18 23:31] VITALS: BP 134/80
[2023-10-19] VITALS (9 sets, daily range): BP systolic 15–145; BP diastolic 61–83; PULSE 94
[2023-10-19] MEDS: ZOSYN 50 IV ×4 (01:59→20:24)
[2023-10-19 06:27] LABS: Hematocrit 26.5 % (39.0-52.0); Hemoglobin 8.6 g/dL (13.0-18.0); Mean Corp Hgb Conc. 32.5 g/dL (33.0-37.0); Mean Corpuscular Hgb 27.7 pg (27.0-31.0); Mean Corpuscular Volume 85.2 fL (80.0-94.0); Mean Platelet Volume 10.2 fL (7.4-10.4); Platelet Count 282 10^3/uL (130-400); Red Blood Cell Count 3.11 10^6/uL (4.70-6.10); Red Cell Dist. Width 15.3 % (11.5-14.5); White Blood Cell Count 7.5 10^3/uL (4.8-10.8)
[2023-10-19 06:36] LABS: Vancomycin Trough 14.1 ug/ml (5-20)
[2023-10-19] MEDS: VANCOCIN 200 IV (06:40)
[2023-10-19 06:48] LABS: Blood Urea Nitrogen 16 mg/dl (9-20); Calcium 8.8 mg/dl (8.4-10.2); Carbon Dioxide 25 mmol/L (22-30); Chloride 102 mmol/L (98-107); Estimated Creatinine Clearance 81 ml/min; Glucose 125 mg/dl (70-99); Potassium 4.2 mmol/L (3.5-5.1); Sodium 135 mmol/L (135-145); eGFR > 60.00
[2023-10-19 07:30] LABS: Glucose - Point of Care 121 mg/dl (70-99)
[2023-10-19] MEDS: NOVOLOG FLEXPEN-LOW RESISTANCE SC (08:02)
[2023-10-19] MEDS: LOW STRENGTH ASPIRIN 81 MG PO (08:04)
[2023-10-19] MEDS: SINEMET CR 50/200 (EXTENDED RELEASE) 1 TABLET PO ×3 (08:04→21:08)
[2023-10-19] MEDS: COMTAN 200 MG PO ×3 (08:05→21:08)
[2023-10-19] MEDS: GLUCOPHAGE 1000 MG PO ×2 (08:05→20:23)
[2023-10-19] MEDS: COZAAR 50 MG PO (08:05)
[2023-10-19] MEDS: CARDIZEM 30 MG PO ×2 (08:05→20:24)
--- NOTE | 2023-10-19 08:13 | PHA.VAN.FU ---
Vancomycin Assessment / Plan
- Assessment
Renal Function: Stable
WBC's are: WNL
In the past 24 hrs, patient has been: Afebrile
Concomitant Antimicrobials: piperacillin/tazobactam
- Assessment - Therapeutic Drug Monitoring
Extrapolated Cmax (mcg/mL): 23.7
Peak level was drawn: Appropriately (drawn ~1.75H after end of previous infusion)
Extrapolated Cmin (mcg/mL): 13.8
Trough Drawn: Appropriately
Levels were drawn: At steady state (levels drawn after 3rd maintenance dose, although patient may have additional accumulation)
Calculated AUC (mcg*h/mL): 439
Calculated ke: 0.0493
Calculated half life (H): 14.1
Calculated Vd (L): 92 (~0.9 L/kg)
Calculated Vanc CL (ml/min): 76
- Dosing Plan
Adjust Regimen to: Vanc 1500mg Q24H
Dosing Comments: give additional 500mg x1 for total of 1500mg today
Pre-emptively adjusting interval since expect additional accumulation with half-life > current interval
Difficult to predict PK with new regimen as patient likely has not fully accumulated on current regimen
- Monitoring Plan
No level(s) ordered at this time: consider repeat levels in next few days
- Follow Up
Pharmacy will continue to follow.
Vancomycin Follow UP
- -
Patient Age: 83
Patient Sex: Male
Vancomycin Day #: 3
Indication: Skin And Soft Tissue
Requesting Provider: Do Torres / Raman
Pertinent Antimicrobial Allergies:
NKDA
Height / Weight:
Height 5 ft 11 in
Actual Weight 99.065 kg
Pertinent Past Medical History: BMI ~30.5, DM2, PAD, Parkinson's
- Vital Signs / Lab Results
Temp Pulse Resp BP Pulse Ox
97.3 F 98 18 134/80 98
10/18/23 23:31 10/18/23 23:31 10/18/23 23:31 10/18/23 23:31 10/18/23 23:31
Lab Results - Hematology
10/16/23 10/17/23 10/18/23
18:08 05:59 05:06
WBC 8.2 8.6 7.8
10/19/23
05:18
WBC 7.5
Lab Results - Chemistry
10/16/23 10/17/23 10/18/23
18:08 05:59 05:06
BUN 16 14 16
Creatinine 0.7 0.8 0.8
Estimated Creat Clear 96 81 81
Albumin 3.3 L
10/19/23
05:18
BUN 16
Creatinine 0.8
Estimated Creat Clear 81
Albumin
Microbiology Results
10/16/23 18:29 Blood Culture - Preliminary
Blood/Venous No Growth in 48 hours- Final report to follow
10/16/23 18:08 Blood Culture - Preliminary
Blood/Venous No Growth in 48 hours- Final report to follow
10/17/23 00:12 MRSA Screen - Preliminary
Nose
Therapeutic Drug Monitoring
Vancomycin Peak 21.7 ug/ml (18-26) 10/18/23 20:33
Vancomycin Trough 14.1 ug/ml (5-20) 10/19/23 05:18
--- NOTE | 2023-10-19 09:02 | W.PN.HOSP.TC ---
Today's Communication/Plan
-
see A/P
Assessment / Plan
Assessment / Plan
83-year-old male past medical history of atrial fibrillation not on Coumadin anymore, diabetes, diabetic neuropathy, hypertension, prior recent amputation of second left toe, peripheral vascular disease status post recent shockwave lithotripsy of
the posterior tibial artery stenosis, balloon angioplasty of distal posterior tibial artery stenosis/left peroneal artery, Parkinson's disease, obstructive sleep apnea, presented with infected third left toe concerning for osteomyelitis.�Labs show
progressive worsening of hemoglobin from 12 in January to 8.8 at this time.�
A/P:
# L foot cellulitis with 2nd metatarsal acute osteomyelitis, 3rd toe acute osteomyelitis
# h/o PAD/ peripheral neuropathy
# h/o left 2nd toe amputation
Foot XR with 2nd metatarsal acute osteomyelitis, 3rd toe acute osteomyelitis
vascular on board
arterial LE US confirmed Left infrapopliteal artery disease.
For angiography 10/18.�
Podiatry on board, plan for OR after angio
cont zosyn , vanco
blood Cx neg
ID on board
# Chronic atrial fibrillation
Continue Cardizem
Not on AC due to frequent fall
# Essential hypertension
Continue Cardizem, losartan
BP controlled
# Type 2 diabetes
Insulin sliding scale
# Hyperlipidemia
simvastatin
# Peripheral vascular disease
ASA, Plavix, Statin
# Parkinson's disease
Continue home [id number] (Stalevo)
Continue Neupro
# EAMON- CPAP
# H/O Right eye malignancy
# Ex Smoker
# Chronic gait dysfunction
Full code
DVT prophylaxis� Lovenox SQ
Anticipated Discharge: > 48 hours
Subjective/Interval History
-
Date of Service: October 19, 2023
Objective Data
-
Labs:
Laboratory Results
10/19/23
05:18
WBC 7.5
Hgb 8.6 L
Hct 26.5 L
Plt Count 282
Sodium 135
Potassium 4.2
Chloride 102
Carbon Dioxide 25
BUN 16
Creatinine 0.8
Glucose 125 H
Calcium 8.8
Vital Signs:
Vital Signs
Temp Pulse Resp BP Pulse Ox
36.7 C 89 16 134/65 100
10/19/23 07:03 10/19/23 07:03 10/19/23 07:03 10/19/23 07:03 10/19/23 07:03
I&O
10/18/23 10/19/23 10/20/23
06:59 06:59 06:59
Intake Total 1320 / 1320 480 / 480
Output Total 1550 / 1550 600 / 600
Balance -230 / -230 -120 / -120
Review of Systems
-
All other systems: Reviewed and negative
Physical Exam
-
General: Well Developed, Well Nourished, No Apparent Distress, Comfortable and Conversant; Negative Respiratory Distress
HEENT: Normocephalic, Atraumatic, Nose Appears Normal and Ears Appear Normal; Negative Oxygen
Respiratory: Clear to Auscultation and Non Labored Respirations; Negative Accessory Resp Muscle Use
Cardiac: Regular Rhythm and S1/S2
GI: Soft, Nontender, Nondistended and Normal Bowel Sounds
Skin: Warm, Dry and Other (L necrotic third toe )
Neuro: Awake and Alert
Psych: Calm and Intact Judgement/Insight
Data Reviewed
-
Diagnostic Radiology: Report Reviewed by me
Labs: Labs Reviewed by me
[2023-10-19] MEDS: VANCOCIN HCL 500 MG 100 IV (11:03)
[2023-10-19 12:05] LABS: Glucose - Point of Care 163 mg/dl (70-99)
--- NOTE | 2023-10-19 12:31 | W.PN.ID1 ---
Date of Service
Date of Service: October 19, 2023
Today's Communication
- continue vancomycin and zosyn for now - may require a long course of IV antibiotics if there is concern for residual infection in the 2nd met head after the 3rd digit amputation
Assessment / Plan
Suspected Osteomyelitis 3rd distal phalanx, middle phalanx
- bone culture by report with MRSA
Suspected osteomyelitis 2nd metarasal head - lateral aspect
Cellulitis
Dm2
PAD
- copy of bone culture results reviewed and placed on paper chart
- mrsa screen in progress - even if negative would not stop mrsa coverage given recent report
- blood cultures x2 in progress - NGTD
- a1c 6.6
- continue vancomycin and zosyn for now - may require a long course of IV antibiotics if there is concern for residual infection in the 2nd met head after the 3rd digit amputation
- follow clinically
Chief Complaint
-: Other (osteomyelitis, gangrene )
Subjective / Review of Systems
afebrile
bp stable
without leukocytosis, cr stable
for the OR today
Vital Signs / Physical Exam
Vital Signs
Vital Signs
Temp Pulse Resp BP Pulse Ox
98.0 F 89 16 134/65 100
10/19/23 07:03 10/19/23 07:03 10/19/23 07:03 10/19/23 07:03 10/19/23 07:03
Physical Exam
Constitutional: No Acute Distress
Cardiovascular: Regular Rate and S1/S2; Negative Murmur or Rub
Pulmonary: Clear and Symmetric; Negative Wheezes or Rales
Gastrointestinal: Soft, Non Tender, Non Distended and Normal Bowel Sounds
Skin: Warm and Dry; Negative Rash or Jaundice
Objective Data
Lab Data
Lab Results
10/19/23 05:18
10/19/23 05:18
ESR 91 mm/hour (0-20) H 10/16/23 18:08
Estimated Creat Clear 81 ml/min 10/19/23 05:18
Total Bilirubin 0.6 mg/dl (0.2-1.3) 10/16/23 18:08
AST 17 U/L (17-59) 10/16/23 18:08
ALT < 10 U/L (0-50) 10/16/23 18:08
Alkaline Phosphatase 99 U/L (38-126) 10/16/23 18:08
C-Reactive Protein 20.90 mg/L (0.0-10.00) H 10/16/23 18:08
Most recent labs reviewed.
Micro Results:
10/17/23 00:12 MRSA Screen - Final
Nose Staph aureus MRSA
10/16/23 18:29 Blood Culture - Preliminary
Blood/Venous No Growth in 48 hours- Final report to follow
10/16/23 18:08 Blood Culture - Preliminary
Blood/Venous No Growth in 48 hours- Final report to follow
[2023-10-19] MEDS: NOVOLOG FLEXPEN-LOW RESISTANCE 1 UNITS SC ×2 (12:51→18:20)
--- NOTE | 2023-10-19 13:34 | W.SUR.PREOP ---
Pre-Operative Surgical Note
-
I have examined this patient prior to the performance of the scheduled procedure.
The patient's condition is unchanged from the time of the current History and
Physical and the patient is able to undergo the scheduled procedure.
--- NOTE | 2023-10-19 15:35 | CM ---
Angiography today and OR thereafter for amputation of toe(s). Discharge plan of care: TBD after therapy eval after surgery.
--- NOTE | 2023-10-19 15:50 | W.IMMPOSTOP ---
Surgical Immed Post Op Note
-
Primary Surgeon: Jaxson Pérez III, MD
Assisting Surgeon: Eduardo Howell MD
Pre-op Diagnosis: Non-healing LLE
Post-op Diagnosis: Non-healing LLE
Procedure Performed: LLE angiogram, Left peroneal intravascular lithotripsy, left TP trunk intravascular lithotripsy, left popliteal balloon angioplasty
Anesthesia Type: Light Sedation
Specimen / Cultures: NA
Estimated Blood Loss: 2cc
Complications: None
Operative Findings:
Access obtained via right-sided 5Fr sheath. LLE agram demonstrated diffusely diseased popliteal artery and all distal tributaries. Popliteal, peroneal, posterior tibial, and TP trunk appeared candidates for intervention. Glidewire used to navigate
to area of interest. Exchanged for 014 hydro-st wire and [id number] IVL catheter advanced. IV Lithotripsy applied to peroneal, posterior tibial, and TP trunk with significant improvement seen with post-intervention agram. Next, the 5Fr sheath was
exchanged for a 6Fr sheath and a 6mmx45 balloon angioplasty catheter was advanced to popliteal and inflated to slightly above nominal pressures. Post-intervention agram with significantly improved flow.
--- NOTE | 2023-10-19 16:56 | W.SUR.POST ---
Surgical Immediate Post Op
Note
Pre Op Diagnosis:
Gangrene left 3rd toe, osteomyelitis left 2nd met
Post Op Diagnosis:
Same
Procedure Performed:
Amputation left 3rd toe, bone culture left 2nd met
Primary Surgeon: T Propato
Secondary Surgeons:
N/A
Anesthesia: MAC
Estimated Blood Loss: 10cc
Fluids: NA
Drains/Shunts: None
Specimens/Cultures: Bone cs 2nd met head and 3rd met head
Doppler/Duplex/Angio (Y/N): N
Complications: None
Operative Findings:
Gangrene left 3rd toe, no abscesss of involvement at MTP level, left 2nd met head enlarged, deformed.
[2023-10-19 17:06] LABS: Glucose - Point of Care 165 mg/dl (70-99)
[2023-10-19] MEDS: DILAUDID 0.25 MG IV ×2 (17:21→17:38)
[2023-10-19] MEDS: NSS 1000 IV (17:30)
--- NOTE | 2023-10-19 17:56 | OR.RPT ---
Operative Report
Operative Report
Date of Operation: 10/19/2023
Pre Op Diagnosis: Critical limb threatening ischemia with necrotic toe wounds, left foot
Post Op Diagnosis: Critical limb threatening ischemia with necrotic toe wounds, left foot
Procedure:
1.) Intravascular lithotripsy to left calcified posterior tibial artery stenosis (3 mm x 40 mm S4 shockwave balloon)
2.) Intravascular lithotripsy to left calcified peroneal artery stenosis (3.5 mm x 40 mm S4 shockwave balloon)
3.) Drug-coated balloon angioplasty to left popliteal artery stenosis (5 mm x 40 mm iNPACT drug-coated balloon)
4.) Diagnostic aortobiiliac arteriogram
5.) Diagnostic left lower extremity arteriogram
6.) Ultrasound-guided percutaneous access to the right common femoral artery
Surgeon: Jaxson Pérez III, MD
Volunteer Services Director: Eduardo Howell MD PGY-1
Anesthesia: Sedation with local
Fluoroscopy:
24.4 min
151 mGy
44.02 Gy.cm2
Complications: None
Estimated Blood Loss: Less than 10 cc
History and Indications for Procedure: 83-year-old male with critical limb threatening ischemia of his left lower extremity manifested by necrotic toe wounds
Procedure in Detail: Feroz Baird was correctly identified and placed supine on the operating table. After adequate induction of anesthesia the bilateral groins were prepped and draped in the usual sterile fashion. A timeout was performed with the
nursing and anesthesia staff confirming the patient's identity as well as the nature and laterality of the procedure.
The right common femoral artery was identified under ultrasound guidance. The artery was patent. The superior and inferior aspects of the femoral head were identified with radiographic guidance and marked at the skin level. The proposed puncture
site was infiltrated with local anesthesia. We saved a copy of the ultrasound image to the medical record. Under ultrasound guidance we accessed the right common femoral artery with a micropuncture needle and upsized to a 5 Fr sheath over a FAMOCOson
wire. The wire and a [employer] hook flush catheter were advanced into the distal abdominal aorta and a diagnostic aorto-biiliac arteriogram was performed:
AORTO-ILIAC ARTERIOGRAM:
Aorta: Widely patent with no stenosis identified
Right common iliac artery: Widely patent with no stenosis identified
Right external iliac artery: Widely patent with no stenosis identified
Left common iliac artery: Widely patent with no stenosis identified
Left external iliac artery: Widely patent with no stenosis identified
Under roadmap guidance using a Glidewire and the [employer] hook catheter we selected the left common iliac artery and then the external iliac artery. A catheter was tracked up and over the aortic bifurcation and placed in the distal external iliac
artery. A diagnostic left lower extremity arteriogram was then performed which demonstrated the following:
LEFT LOWER EXTREMITY:
Common femoral artery: Widely patent with no stenosis identified
Profunda femoral artery: Widely patent with no stenosis identified
Superficial femoral artery: Widely patent with no stenosis identified
Popliteal artery: Patent above the knee with no stenosis identified. Focal high-grade stenosis behind the knee. Below the knee popliteal artery patent with no stenosis identified
Anterior tibial artery: Patent at its origin. Occluded shortly thereafter with no distal reconstitution
Tibioperoneal trunk: Patent
Peroneal artery: Patent. High-grade stenosis proximally. Moderate stenoses distal to this. Patent to the ankle.
Posterior tibial artery: Diffusely calcified. Long segment high-grade stenosis involving the proximal and mid segment. Continues across the ankle to form the plantar branches.
ENDOVASCULAR INTERVENTION: Systemic heparin was administered. Selected the superficial femoral artery and popliteal artery. Exchanged out for a 5 Fr 90 cm sheath over a Storq wire. Selected the posterior tibial artery under roadmap guidance with
Quickcross catheter and glidewire. The proximal and mid stenosis was crossed with a Quickcross and hydrophilic tip 0.014 wire. The wire was positioned in the distal posterior tibial artery. Due to the heavily calcified nature of the posterior
tibial artery disease and in an effort to modify the calcium to achieve maximum luminal gain with endovascular intervention I elected to proceed with intravascular lithotripsy. A 3 mm x 40 mm S4 shockwave balloon was placed across the posterior
tibial artery stenosis under roadmap guidance. Alternating rounds of lithotripsy pulse delivery at sub-nominal pressure and angioplasty at nominal pressure was performed across the stenosis. In between rounds of pulse delivery and angioplasty the
balloon was deflated and repositioned under roadmap guidance. All 160 pulses were delivered. Subsequent arteriogram demonstrated an excellent technical result with a widely patent posterior tibial artery, brisk flow and no significant residual
stenosis identified.
I then focused my attention on the peroneal artery. The peroneal artery was selected with the hydrophilic tip 0.014 wire. The wire was advanced across the proximal stenoses and advanced into the distal artery. Due to the heavily calcified nature
of the proximal peroneal artery disease and in an effort to modify the calcium to achieve maximum luminal gain with endovascular intervention I elected to proceed with intravascular lithotripsy. A 3.5 mm x 40 mm S4 shockwave balloon was placed
across the peroneal artery stenosis under roadmap guidance. Alternating rounds of lithotripsy pulse delivery at sub-nominal pressure and angioplasty at nominal pressure was performed across the stenosis. In between rounds of pulse delivery and
angioplasty the balloon was deflated and repositioned under roadmap guidance. All 160 pulses were delivered. Subsequent arteriogram demonstrated an excellent technical result with a widely patent peroneal artery and no significant residual stenosis
identified.
I then upsized to a 6 [place] sheath over a Storq wire. I focused on the popliteal artery stenosis. Under roadmap guidance a 5 mm x 40 mm iNPACT drug-coated balloon was positioned in the desired location across the popliteal artery stenosis. The
balloon was inflated to nominal pressure, held in place for 3 minutes and then slowly deflated and removed over the wire. Subsequent arteriogram demonstrated an excellent technical result with a widely patent popliteal artery and no significant
residual stenosis.
Satisfied with this result we concluded the procedure. Protamine was administered. The sheath tip was pulled back into the right external iliac artery and secured in place.
The case was turned over to Dr. Max at this point for toe amputation which will be dictated separately.
Attestation: I was present and responsible for all dictated portions of the procedure above.
Signed:
Jaxson Pérez III, MD
[facility]
[phone] ([phone])
[2023-10-19] MEDS: BACTROBAN 2% OINTMENT TOPICAL (18:09)
[2023-10-19] MEDS: SINEMET CR 50/200 (EXTENDED RELEASE) PO (18:18)
[2023-10-19] MEDS: COMTAN PO (18:18)
[2023-10-19] MEDS: LOVENOX SC (18:19)
[2023-10-19] MEDS: SENOKOT 17.1999999999999993 MG PO (21:08)
[2023-10-19] MEDS: MELATONIN 5 MG PO (21:08)
[2023-10-19] MEDS: LIPITOR 20 MG PO (21:08)
[2023-10-19] MEDS: NEUPRO 2 MG TOPICAL (21:08)
[2023-10-19 21:51] LABS: Glucose - Point of Care 258 mg/dl (70-99)
[2023-10-20] MEDS: ZOSYN 50 IV ×4 (01:51→19:48)
[2023-10-20] MEDS: VANCOCIN 300 MG IV (05:52)
[2023-10-20] MEDS: VANCOCIN 300 ML IV (05:52)
[2023-10-20 07:05] VITALS: BP 109/67
[2023-10-20 07:13] LABS: Glucose - Point of Care 256 mg/dl (70-99)
[2023-10-20 08:34] LABS: Hematocrit 27.8 % (39.0-52.0); Hemoglobin 9.1 g/dL (13.0-18.0); Mean Corp Hgb Conc. 32.7 g/dL (33.0-37.0); Mean Corpuscular Hgb 28.3 pg (27.0-31.0); Mean Corpuscular Volume 86.3 fL (80.0-94.0); Mean Platelet Volume 10.2 fL (7.4-10.4); Platelet Count 312 10^3/uL (130-400); Red Blood Cell Count 3.22 10^6/uL (4.70-6.10); Red Cell Dist. Width 15.4 % (11.5-14.5); White Blood Cell Count 8.3 10^3/uL (4.8-10.8)
[2023-10-20] MEDS: COZAAR 50 MG PO (08:34)
[2023-10-20] MEDS: LOW STRENGTH ASPIRIN 81 MG PO (08:34)
[2023-10-20] MEDS: GLUCOPHAGE 1000 MG PO (08:34)
[2023-10-20] MEDS: SINEMET CR 50/200 (EXTENDED RELEASE) 1 TABLET PO ×4 (08:34→22:21)
[2023-10-20] MEDS: COMTAN 200 MG PO ×4 (08:34→22:21)
[2023-10-20] MEDS: CARDIZEM 30 MG PO ×2 (08:35→19:52)
[2023-10-20] MEDS: NOVOLOG FLEXPEN-LOW RESISTANCE 3 UNITS SC ×2 (08:36→17:34)
[2023-10-20 08:39] LABS: INR 1.32; PT 16.2 Sec (11.4-14.6)
--- NOTE | 2023-10-20 08:40 | W.PN.HOSP.TC ---
Today's Communication/Plan
-
see A/P
Assessment / Plan
Assessment / Plan
83-year-old male past medical history of atrial fibrillation not on Coumadin anymore, diabetes, diabetic neuropathy, hypertension, prior recent amputation of second left toe, peripheral vascular disease status post recent shockwave lithotripsy of
the posterior tibial artery stenosis, balloon angioplasty of distal posterior tibial artery stenosis/left peroneal artery, Parkinson's disease, obstructive sleep apnea, presented with infected third left toe concerning for osteomyelitis.�Labs show
progressive worsening of hemoglobin from 12 in January to 8.8 at this time.�
A/P:
# L foot cellulitis with 2nd metatarsal acute osteomyelitis, 3rd toe acute osteomyelitis
# h/o PAD/ peripheral neuropathy
# h/o left 2nd toe amputation
Foot XR with 2nd metatarsal acute osteomyelitis, 3rd toe acute osteomyelitis
vascular on board
arterial LE US confirmed Left infrapopliteal artery disease.
s/p angiography 10/18: balloon angioplasty to left popliteal artery stenosis, lithotripsy left calcified posterior tibial artery stenosis, lithotripsy to left calcified peroneal artery stenosis
s/p Amputation left third toe including metatarsal head by scrap bunch maker on 10/18
Follow pathology report
for now, cont zosyn /vanco
blood Cx neg
ID on board
# Chronic atrial fibrillation
Continue Cardizem
Not on AC due to frequent fall
# Essential hypertension
Continue Cardizem, losartan
BP controlled
# Type 2 diabetes
Insulin sliding scale
# Hyperlipidemia
simvastatin
# Peripheral vascular disease
ASA, Plavix, Statin
# Parkinson's disease
Continue home [id number] (Stalevo)
Continue Neupro
# EAMON- CPAP
# H/O Right eye malignancy
# Ex Smoker
# Chronic gait dysfunction
Full code
DVT prophylaxis� Lovenox SQ
DW RN
Anticipated Discharge: > 48 hours
Subjective/Interval History
-
Date of Service: October 20, 2023
Objective Data
-
Labs:
Laboratory Results
10/20/23
07:17
WBC Pending
Hgb Pending
Hct Pending
Plt Count Pending
PT Pending
INR Pending
APTT Pending
Sodium Pending
Potassium Pending
Chloride Pending
Carbon Dioxide Pending
BUN Pending
Creatinine Pending
Glucose Pending
Calcium Pending
Vital Signs:
Vital Signs
Temp Pulse Resp BP Pulse Ox
36.2 C 85 18 109/67 100
10/20/23 07:05 10/20/23 07:05 10/20/23 07:05 10/20/23 07:05 10/20/23 07:05
I&O
10/19/23 10/20/23 10/21/23
06:59 06:59 06:59
Intake Total 480 / 480 1000 / 1000
Output Total 600 / 600 1350 / 1350
Balance -120 / -120 -350 / -350
Review of Systems
-
All other systems: Reviewed and negative
Physical Exam
-
General: Well Developed, Well Nourished, No Apparent Distress, Comfortable and Conversant; Negative Respiratory Distress
HEENT: Normocephalic, Atraumatic, Nose Appears Normal and Ears Appear Normal; Negative Oxygen
Respiratory: Clear to Auscultation and Non Labored Respirations; Negative Accessory Resp Muscle Use
Cardiac: Regular Rhythm and S1/S2
GI: Soft, Nontender, Nondistended and Normal Bowel Sounds
Skin: Warm and Dry
Neuro: Awake and Alert
Psych: Calm and Intact Judgement/Insight
Data Reviewed
-
Diagnostic Radiology: Report Reviewed by me
Labs: Labs Reviewed by me
--- NOTE | 2023-10-20 08:56 | W.PN.VS ---
Today's Communication / Plan
-
See below
Assessment/Plan
-
Assessment: 83-year-old male POD #1 Intravascular lithotripsy to left calcified posterior tibial artery, peroneal artery stenosis, and popliteal artery stenosis and amputation left third toe, including metatarsal head by podiatry
Plan:
Continue antiplatelet therapy of aspirin 81 mg p.o. daily
Hold metformin for 48 hours following procedure
Patient can follow-up in our office in roughly 3 to 4 weeks with repeat ultrasound, if patient is still in-house on Sunday we will establish follow-up visit and place in discharge instructions if not we will call patient with follow-up
Wound care/postsurgical care for amputation per podiatry
Subjective Data
-
Date of Service: October 20, 2023
Patient seen and examined at bedside, offers no complaints. Reports no discomfort at right groin site. Denies nausea, fever, chills, and vomiting.
Objective Data
-
Vital Signs
Temp Pulse Resp BP Pulse Ox
97.1 F 85 18 109/67 100
10/20/23 07:05 10/20/23 07:05 10/20/23 07:05 10/20/23 07:05 10/20/23 07:05
Intake and Output
10/19/23 10/20/23 10/21/23
06:59 06:59 06:59
Intake Total 480 / 480 1000 / 1000
Output Total 600 / 600 1350 / 1350
Balance -120 / -120 -350 / -350
Intake:
Oral fluids 480 / 480 600 / 600
IV fluids (Total) 400 / 400
Output:
Urine, Voided 600 / 600 1350 / 1350
Other:
Number of approximated MODERATE 4 1
amounts of urine
Number of approximated LARGE 1
amounts of urine
Lab Results
10/20/23 07:17
Calcium 8.8 mg/dl (8.4-10.2) 10/19/23 05:18
Total Bilirubin 0.6 mg/dl (0.2-1.3) 10/16/23 18:08
AST 17 U/L (17-59) 10/16/23 18:08
ALT < 10 U/L (0-50) 10/16/23 18:08
Alkaline Phosphatase 99 U/L (38-126) 10/16/23 18:08
Total Protein 6.6 g/dl (6.3-8.2) 10/16/23 18:08
Albumin 3.3 g/dl (3.5-5.0) L 10/16/23 18:08
Physical Exam
-
No apparent distress, resting in bed comfortably, CPAP machine on
No tachycardia
No dyspnea on CPAP itching
ABD, soft, nontender, nondistended
Right groin site CDI, no evidence of hematoma, all surrounding compartments soft
Left foot with surgical dressing CDI, foot warm
[2023-10-20 09:24] LABS: Blood Urea Nitrogen 20 mg/dl (9-20); Calcium 8.5 mg/dl (8.4-10.2); Carbon Dioxide 22 mmol/L (22-30); Chloride 102 mmol/L (98-107); Estimated Creatinine Clearance 81 ml/min; Glucose 230 mg/dl (70-99); Potassium 4.5 mmol/L (3.5-5.1); Sodium 134 mmol/L (135-145); eGFR > 60.00
--- NOTE | 2023-10-20 09:42 | PHA.VAN.FU ---
Vancomycin Assessment / Plan
- Assessment
Renal Function: Stable
WBC's are: WNL
In the past 24 hrs, patient has been: Afebrile
Concomitant Antimicrobials: ZOSYN
- Dosing Plan
Continue: 1500MG Q24H
- Monitoring Plan
Peak Level: 10/20 @0900
Trough Level: 10/21 @0530
- Follow Up
Pharmacy will continue to follow.
Vancomycin Follow UP
- -
Patient Age: 83
Patient Sex: Male
Vancomycin Day #: 4
Indication: Skin And Soft Tissue
Requesting Provider: Do Torres / Raman
Pertinent Antimicrobial Allergies:
NKDA
Height / Weight:
Height 5 ft 11 in
Actual Weight 99.065 kg
Pertinent Past Medical History: BMI ~30.5, DM2, PAD, Parkinson's
- Vital Signs / Lab Results
Temp Pulse Resp BP Pulse Ox
97.1 F 85 18 109/67 100
10/20/23 07:05 10/20/23 08:35 10/20/23 07:05 10/20/23 08:35 10/20/23 07:05
Lab Results - Hematology
10/18/23 10/19/23 10/20/23
05:06 05:18 07:17
WBC 7.8 7.5 8.3
Lab Results - Chemistry
10/18/23 10/19/23 10/20/23
05:06 05:18 07:17
BUN 16 16 20
Creatinine 0.8 0.8 0.8
Estimated Creat Clear 81 81 81
Microbiology Results
10/19/23 16:19 Gram Stain - Preliminary
Toe
10/19/23 16:19 Gram Stain - Preliminary
Bone
10/16/23 18:29 Blood Culture - Preliminary
Blood/Venous No Growth in 72 hours- Final report to follow
10/16/23 18:08 Blood Culture - Preliminary
Blood/Venous No Growth in 72 hours- Final report to follow
10/17/23 00:12 MRSA Screen - Final
Nose Staph aureus MRSA
Therapeutic Drug Monitoring
Vancomycin Peak 21.7 ug/ml (18-26) 10/18/23 20:33
Vancomycin Trough 14.1 ug/ml (5-20) 10/19/23 05:18
[2023-10-20 11:54] VITALS: BP 103/48
[2023-10-20 13:04] LABS: Glucose - Point of Care 242 mg/dl (70-99)
[2023-10-20] MEDS: MIRALAX 17 GRAMS PO (13:22)
[2023-10-20] MEDS: NOVOLOG FLEXPEN-LOW RESISTANCE 2 UNITS SC (13:23)
[2023-10-20] MEDS: TYLENOL 650 MG PO (13:42)
[2023-10-20 15:05] VITALS: BP 124/54
--- NOTE | 2023-10-20 16:02 | W.PN.ID1 ---
Date of Service
Date of Service: October 20, 2023
Today's Communication
- continue vanc/zosyn for today, switch to doxycycline tomorrow to complete 5 day course post op through 10/22
- follow up with podiatry
Assessment / Plan
Suspected Osteomyelitis 3rd distal phalanx, middle phalanx
- bone culture by report with MRSA
Suspected osteomyelitis 2nd metarasal head - lateral aspect
Cellulitis
Dm2
PAD
- continue vanc/zosyn for today, switch to doxycycline tomorrow to complete 5 day course post op through 10/22
- follow up with podiatry
Chief Complaint
-: Other (osteomyelitis, gangrene )
Subjective / Review of Systems
afebrile
bp stable
s/p resection of 2nd met head and 3rd toe
no leukocytosis, cr stable
Vital Signs / Physical Exam
Vital Signs
Vital Signs
Temp Pulse Resp BP Pulse Ox
97.5 F 71 18 124/54 100
10/20/23 15:05 10/20/23 15:05 10/20/23 15:05 10/20/23 15:05 10/20/23 15:05
Physical Exam
Constitutional: No Acute Distress
Cardiovascular: Regular Rate and S1/S2; Negative Murmur or Rub
Pulmonary: Clear and Symmetric; Negative Wheezes or Rales
Gastrointestinal: Soft, Non Tender, Non Distended and Normal Bowel Sounds
Skin: Warm and Dry; Negative Rash or Jaundice
Wound: Other (dressing clean, dry, intact)
Objective Data
Lab Data
Lab Results
10/20/23 07:17
10/20/23 07:17
ESR 91 mm/hour (0-20) H 10/16/23 18:08
PT 16.2 Sec (11.4-14.6) H 10/20/23 07:17
INR 1.32 10/20/23 07:17
APTT 34.0 Sec (23.4-35.0) 10/20/23 07:17
Estimated Creat Clear 81 ml/min 10/20/23 07:17
Total Bilirubin 0.6 mg/dl (0.2-1.3) 10/16/23 18:08
AST 17 U/L (17-59) 10/16/23 18:08
ALT < 10 U/L (0-50) 10/16/23 18:08
Alkaline Phosphatase 99 U/L (38-126) 10/16/23 18:08
C-Reactive Protein 20.90 mg/L (0.0-10.00) H 10/16/23 18:08
Most recent labs reviewed.
Micro Results:
10/19/23 16:19 Anaerobic Culture - Preliminary
Bone Culture pending. Anaerobic cultures are examined after 3
days incubation. Additional information to follow.
10/19/23 16:19 Tissue Culture - Preliminary
Bone Gram Stain - Preliminary
10/19/23 16:19 Tissue Culture - Preliminary
Toe Gram Stain - Preliminary
10/16/23 18:29 Blood Culture - Preliminary
Blood/Venous No Growth in 72 hours- Final report to follow
10/16/23 18:08 Blood Culture - Preliminary
Blood/Venous No Growth in 72 hours- Final report to follow
10/17/23 00:12 MRSA Screen - Final
Nose Staph aureus MRSA
[2023-10-20 17:25] LABS: Glucose - Point of Care 295 mg/dl (70-99)
[2023-10-20] MEDS: LOVENOX 40 MG SC (17:34)
[2023-10-20] MEDS: BACTROBAN 2% OINTMENT TOPICAL (17:44)
--- NOTE | 2023-10-20 17:53 | W.PN.POD ---
Today's Communication
Today's Communication
incision redressed left foot- will re eval left foot incision sun/mon
WBAT in post op shoe
Assessment / Plan
-
POD#1 S/p amp left 3rd toe/met and 2nd met head
DM2 with PAD S/P revasc LLE
DPN
Parkinsons dx with gait dysfunction
Subjective
Chief Complaint
gangrene/pvd left leg/foot
Subjective
Pt sitting up in bed, denies pain left leg or foot
Objective
Temp Pulse Resp BP Pulse Ox
97.5 F 71 18 124/54 100
10/20/23 15:05 10/20/23 15:05 10/20/23 15:05 10/20/23 15:05 10/20/23 15:05
10/20/23 07:17
10/20/23 07:17
Vital Signs and Lab results were reviewed.
Review of Systems
Review of Systems
Review of Systems: No Fever, No Chills, No Nausea, No Diarrhea and No Skin Rash
Physical Exam
Physical Exam
General: No Apparent Distress and Comfortable
Musculoskeletal: Edema, Left Lower Extrem
Skin: Warm, Dry and Other (Incision is c/d/i- scant bloody drainage to dressing)
Neuro: AO x 3 and Protective Sensation Absent
Vascular: Capillary Refill Delayed
Dorsalis Pedis: Intact
Posterior Tibialis: Diminished
[2023-10-20] MEDS: FLUSH (NSS) 2 FLUSH IV (19:49)
[2023-10-20 21:26] LABS: Glucose - Point of Care 331 mg/dl (70-99)
[2023-10-20] MEDS: LIPITOR 20 MG PO (22:21)
[2023-10-20] MEDS: NEUPRO 2 MG TOPICAL (22:21)
[2023-10-20] MEDS: MELATONIN 5 MG PO (22:21)
[2023-10-20] MEDS: SENOKOT 17.1999999999999993 MG PO (22:22)
[2023-10-20] MEDS: NOVOLOG FLEXPEN 5 UNITS SC (22:22)
[2023-10-20 23:08] VITALS: BP 134/59
[2023-10-21] MEDS: VIBRAMYCIN 100 MG PO ×2 (05:21→17:38)
[2023-10-21 07:02] LABS: Glucose - Point of Care 249 mg/dl (70-99)
[2023-10-21 07:05] VITALS: BP 111/76
[2023-10-21 07:44] LABS: Hematocrit 28.3 % (39.0-52.0); Hemoglobin 9.2 g/dL (13.0-18.0); Mean Corp Hgb Conc. 32.5 g/dL (33.0-37.0); Mean Corpuscular Hgb 28.4 pg (27.0-31.0); Mean Corpuscular Volume 87.3 fL (80.0-94.0); Mean Platelet Volume 10.3 fL (7.4-10.4); Platelet Count 271 10^3/uL (130-400); Red Blood Cell Count 3.24 10^6/uL (4.70-6.10); Red Cell Dist. Width 15.7 % (11.5-14.5); White Blood Cell Count 8.3 10^3/uL (4.8-10.8)
[2023-10-21] MEDS: COZAAR 50 MG PO (08:33)
[2023-10-21] MEDS: CARDIZEM 30 MG PO ×2 (08:33→20:39)
[2023-10-21] MEDS: COMTAN 200 MG PO ×4 (08:33→21:47)
[2023-10-21] MEDS: LOW STRENGTH ASPIRIN 81 MG PO (08:33)
[2023-10-21] MEDS: MIRALAX 17 GRAMS PO (08:33)
[2023-10-21] MEDS: SINEMET CR 50/200 (EXTENDED RELEASE) 1 TABLET PO ×4 (08:33→21:47)
[2023-10-21 08:52] LABS: Blood Urea Nitrogen 19 mg/dl (9-20); Calcium 8.5 mg/dl (8.4-10.2); Carbon Dioxide 23 mmol/L (22-30); Chloride 104 mmol/L (98-107); Estimated Creatinine Clearance 81 ml/min; Glucose 204 mg/dl (70-99); Potassium 4.1 mmol/L (3.5-5.1); Sodium 133 mmol/L (135-145); eGFR > 60.00
[2023-10-21] MEDS: NOVOLOG FLEXPEN-LOW RESISTANCE 2 UNITS SC ×3 (09:10→17:38)
--- NOTE | 2023-10-21 09:36 | W.PN.HOSP.TC ---
Today's Communication/Plan
-
see A/P
Assessment / Plan
Assessment / Plan
83-year-old male past medical history of atrial fibrillation not on Coumadin anymore, diabetes, diabetic neuropathy, hypertension, prior recent amputation of second left toe, peripheral vascular disease status post recent shockwave lithotripsy of
the posterior tibial artery stenosis, balloon angioplasty of distal posterior tibial artery stenosis/left peroneal artery, Parkinson's disease, obstructive sleep apnea, presented with infected third left toe concerning for osteomyelitis.�Labs show
progressive worsening of hemoglobin from 12 in January to 8.8 at this time.�
A/P:
# L foot cellulitis with 2nd metatarsal acute osteomyelitis, 3rd toe acute osteomyelitis
# h/o PAD/ peripheral neuropathy
# h/o left 2nd toe amputation
Foot XR with 2nd metatarsal acute osteomyelitis, 3rd toe acute osteomyelitis
vascular on board
arterial LE US confirmed Left infrapopliteal artery disease.
s/p angiography 10/18: balloon angioplasty to left popliteal artery stenosis, lithotripsy left calcified posterior tibial artery stenosis, lithotripsy to left calcified peroneal artery stenosis
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
Follow pathology report
Per vineyard worker, will re eval left foot incision sun/mon, WBAT in post op shoe
zosyn /vanco to doxycycline to complete 5 day course post op through 10/22 per ID
blood Cx neg
PT recc acute rehab, PMR CS placed
# Chronic atrial fibrillation
Continue Cardizem
Not on AC due to frequent fall
# Essential hypertension
Continue Cardizem, losartan
BP controlled
# Type 2 diabetes
Insulin sliding scale
# Hyperlipidemia
simvastatin
# Peripheral vascular disease
ASA, Plavix, Statin
# Parkinson's disease
Continue home [id number] (Stalevo)
Continue Neupro
# EAMON- CPAP
# H/O Right eye malignancy
# Ex Smoker
# Chronic gait dysfunction
Full code
DVT prophylaxis� Lovenox SQ
Updated daughter Carleen on the phone [phone] (she is the civil engineering draftsperson)
Anticipated Discharge: 24 - 48 hours
Subjective/Interval History
-
Date of Service: October 21, 2023
Objective Data
-
Labs:
Laboratory Results
10/21/23
06:27
WBC 8.3
Hgb 9.2 L
Hct 28.3 L
Plt Count 271
Sodium 133 L
Potassium 4.1
Chloride 104
Carbon Dioxide 23
BUN 19
Creatinine 0.8
Glucose 204 H
Calcium 8.5
Vital Signs:
Vital Signs
Temp Pulse Resp BP Pulse Ox
36.2 C 70 18 111/76 100
10/21/23 07:05 10/21/23 07:05 10/21/23 07:05 10/21/23 08:33 10/21/23 07:05
I&O
10/20/23 10/21/23 10/22/23
06:59 06:59 06:59
Intake Total 1000 / 1000 1320 / 1320
Output Total 1350 / 1350 350 / 350
Balance -350 / -350 970 / 970
Review of Systems
-
All other systems: Reviewed and negative
Physical Exam
-
General: Well Developed, Well Nourished, No Apparent Distress, Comfortable and Conversant; Negative Respiratory Distress
HEENT: Normocephalic, Atraumatic, Nose Appears Normal and Ears Appear Normal; Negative Oxygen
Respiratory: Clear to Auscultation and Non Labored Respirations; Negative Accessory Resp Muscle Use
Cardiac: Regular Rhythm and S1/S2
GI: Soft, Nontender, Nondistended and Normal Bowel Sounds
Skin: Warm and Dry
Neuro: Awake and Alert
Psych: Calm and Intact Judgement/Insight
Data Reviewed
-
Diagnostic Radiology: Report Reviewed by me
Labs: Labs Reviewed by me
[2023-10-21 12:21] LABS: Glucose - Point of Care 231 mg/dl (70-99)
[2023-10-21 15:05] VITALS: BP 127/67
--- NOTE | 2023-10-21 15:41 | CHAP ---
Mr. Baird was welcoming. He said things are going all right - he is optimistic. We prayed together, and I assured him we are here for him.
--- NOTE | 2023-10-21 15:45 | W.PN.ID1 ---
Date of Service
Date of Service: October 21, 2023
Today's Communication
- tentatively plan to complete 5 day course post op through 10/22; will follow up podiatry recommendations and update
Assessment / Plan
Suspected Osteomyelitis 3rd distal phalanx, middle phalanx
- bone culture by report with MRSA
Suspected osteomyelitis 2nd metarasal head - lateral aspect
Cellulitis
Dm2
PAD
- tentatively plan to complete 5 day course post op through 10/22; will follow up podiatry recommendations and update
- follow up with podiatry
Chief Complaint
-: Other (osteomyelitis, gangrene )
Subjective / Review of Systems
afebrile
bp stable
tolerating current therapies
some bleeding on the bandage
no leukocytosis, cr stable
Vital Signs / Physical Exam
Vital Signs
Vital Signs
Temp Pulse Resp BP Pulse Ox
97.6 F 74 18 127/67 100
10/21/23 15:05 10/21/23 15:05 10/21/23 15:05 10/21/23 15:05 10/21/23 15:05
Physical Exam
Constitutional: No Acute Distress
Cardiovascular: Regular Rate and S1/S2; Negative Murmur or Rub
Pulmonary: Clear and Symmetric; Negative Wheezes or Rales
Gastrointestinal: Soft, Non Tender, Non Distended and Normal Bowel Sounds
Skin: Warm and Dry; Negative Rash or Jaundice
Objective Data
Lab Data
Lab Results
10/21/23 06:27
10/21/23 06:27
ESR 91 mm/hour (0-20) H 10/16/23 18:08
PT 16.2 Sec (11.4-14.6) H 10/20/23 07:17
INR 1.32 10/20/23 07:17
APTT 34.0 Sec (23.4-35.0) 10/20/23 07:17
Estimated Creat Clear 81 ml/min 10/21/23 06:27
Total Bilirubin 0.6 mg/dl (0.2-1.3) 10/16/23 18:08
AST 17 U/L (17-59) 10/16/23 18:08
ALT < 10 U/L (0-50) 10/16/23 18:08
Alkaline Phosphatase 99 U/L (38-126) 10/16/23 18:08
C-Reactive Protein 20.90 mg/L (0.0-10.00) H 10/16/23 18:08
Most recent labs reviewed.
Micro Results:
10/19/23 16:19 Tissue Culture - Preliminary
Toe Gram Stain - Preliminary
10/19/23 16:19 Tissue Culture - Preliminary
Bone Staphylococcus aureus
Gram Stain - Preliminary
10/16/23 18:29 Blood Culture - Preliminary
Blood/Venous No Growth in 4 days- Final report to follow
10/16/23 18:08 Blood Culture - Preliminary
Blood/Venous No Growth in 4 days- Final report to follow
10/19/23 16:19 Anaerobic Culture - Preliminary
Bone Culture pending. Anaerobic cultures are examined after 3
days incubation. Additional information to follow.
10/17/23 00:12 MRSA Screen - Final
Nose Staph aureus MRSA
[2023-10-21 17:09] LABS: Glucose - Point of Care 240 mg/dl (70-99)
[2023-10-21] MEDS: LOVENOX 40 MG SC (17:38)
[2023-10-21] MEDS: BACTROBAN 2% OINTMENT 1 APPLIC TOPICAL (17:39)
--- NOTE | 2023-10-21 18:43 | FALL ---
Description of Fall:
he was scooching himself on the bed off the bed alarm during a rapid in another room and he slid onto the floor onto his butt.
Injuries Noted:
no injuries noted.
Action Taken:
pt assessed, notified, pt put back in bed. pt placed on medsitter.
Name of Provider Notified: Dr. Weldon
[2023-10-21] MEDS: FLUSH (NSS) 1 FLUSH IV (20:41)
[2023-10-21 21:33] LABS: Glucose - Point of Care 306 mg/dl (70-99)
[2023-10-21] MEDS: MELATONIN 5 MG PO (21:47)
[2023-10-21] MEDS: LIPITOR 20 MG PO (21:47)
[2023-10-21] MEDS: SENOKOT PO ×2 (21:47→21:49)
[2023-10-21] MEDS: NEUPRO 2 MG TOPICAL (21:47)
[2023-10-21] MEDS: GLUCOPHAGE 1000 MG PO (21:47)
[2023-10-21 22:28] VITALS: PULSE 95
[2023-10-21 23:08] VITALS: BP 146/74
--- NOTE | 2023-10-22 01:59 | PTCARENOTE ---
Patient restless at start of shift. Ox3 and able to state why he was here and that he had his toe amputated. But he had confused conversation about his family being present and that he lived next door. Patient agitated with attempts to reorient.
After HS care and bed bath patient was more calm and cooperative. Med sitter in place. HR regular, breath sounds are CTA, DP pulses by Doppler. Left foot dressing came off and was redressed. Ortho shoe for OOB. Patient sleeping quietly at this
time. CPAP on.
[2023-10-22] MEDS: VIBRAMYCIN 100 MG PO ×2 (05:51→17:15)
[2023-10-22 06:22] LABS: Hematocrit 28.1 % (39.0-52.0); Mean Corpuscular Hgb 28.1 pg (27.0-31.0); Mean Corpuscular Volume 87.8 fL (80.0-94.0); Mean Platelet Volume 10.1 fL (7.4-10.4); Platelet Count 229 10^3/uL (130-400); Red Cell Dist. Width 15.8 % (11.5-14.5); White Blood Cell Count 8.8 10^3/uL (4.8-10.8)
[2023-10-22 06:46] LABS: Blood Urea Nitrogen 16 mg/dl (9-20); Calcium 8.7 mg/dl (8.4-10.2); Carbon Dioxide 27 mmol/L (22-30); Chloride 101 mmol/L (98-107); Estimated Creatinine Clearance 93 ml/min; Glucose 208 mg/dl (70-99); Potassium 4.2 mmol/L (3.5-5.1); Sodium 135 mmol/L (135-145); eGFR > 60.00
[2023-10-22 07:01] LABS: Glucose - Point of Care 222 mg/dl (70-99)
[2023-10-22 07:10] VITALS: BP 155/79
[2023-10-22] MEDS: NOVOLOG FLEXPEN-LOW RESISTANCE 2 UNITS SC ×2 (08:09→12:27)
[2023-10-22] MEDS: CARDIZEM 30 MG PO ×2 (08:11→20:11)
[2023-10-22] MEDS: LOW STRENGTH ASPIRIN 81 MG PO (08:11)
[2023-10-22] MEDS: GLUCOPHAGE 1000 MG PO ×2 (08:11→20:11)
[2023-10-22] MEDS: SINEMET CR 50/200 (EXTENDED RELEASE) 1 TABLET PO ×4 (08:11→21:54)
[2023-10-22] MEDS: COZAAR 50 MG PO (08:11)
[2023-10-22] MEDS: COMTAN 200 MG PO ×4 (08:11→21:54)
[2023-10-22] MEDS: MIRALAX 17 GRAMS PO (08:11)
--- NOTE | 2023-10-22 09:35 | W.PN.HOSP.TC ---
Today's Communication/Plan
-
continue current plan of care pending placement
Assessment / Plan
Assessment / Plan
83-year-old male past medical history of atrial fibrillation not on Coumadin anymore, diabetes, diabetic neuropathy, hypertension, prior recent amputation of second left toe, peripheral vascular disease status post recent shockwave lithotripsy of
the posterior tibial artery stenosis, balloon angioplasty of distal posterior tibial artery stenosis/left peroneal artery, Parkinson's disease, obstructive sleep apnea, presented with infected third left toe concerning for osteomyelitis.�Labs show
progressive worsening of hemoglobin from 12 in January to 8.8 at this time.�
Assessment:
L foot cellulitis with 2nd metatarsal acute osteomyelitis, 3rd toe acute osteomyelitis
- s/p L 3rd toe amputation 10/18 by podiatry
- continue WBAT in post-op shoes, follow wound care recs
- follow path
- per ID; continue Doxy through 10/22. Bone culture grew MRSA
- PT/OT - SNF vs acute rehab
h/o PAD/ peripheral neuropathy
- arterial LE US confirmed Left infrapopliteal artery disease.
- s/p A-gram 10/18 with balloon angioplasty to left popliteal artery stenosis, lithotripsy left calcified posterior tibial artery stenosis, lithotripsy to left calcified peroneal artery stenosis
- continue ASA/Statin/Plavix
- f/u in Vascular office in 4 weeks
Chronic atrial fibrillation
- continue Cardizem
- not on AC due to hx of falls
Essential hypertension
- continue Cardizem/Losartan
- monitor BP
Type 2 diabetes
- continue Metformin
- Insulin sliding scale
- A1c is 6.6%
Hyperlipidemia
- statin
Parkinson's disease
- continue home [id number] (Stalevo)
- continue Neupro
EAMON on CPAP
H/O Right eye malignancy
Ex Smoker
Chronic gait dysfunction
DVT ppx: Lovenox
Code: Full
Family contact: daughter Carleen [phone]
Anticipated Discharge: 24 - 48 hours
Subjective/Interval History
-
Date of Service: October 22, 2023
denies any new complaints
pain controlled
Objective Data
-
Labs:
Laboratory Results
10/22/23
05:23
WBC 8.8
Hgb 9.0 L
Hct 28.1 L
Plt Count 229
Sodium 135
Potassium 4.2
Chloride 101
Carbon Dioxide 27
BUN 16
Creatinine 0.7
Glucose 208 H
Calcium 8.7
Vital Signs:
Vital Signs
Temp Pulse Resp BP Pulse Ox
97.7 F 79 16 155/79 99
10/22/23 07:10 10/22/23 08:11 10/22/23 07:10 10/22/23 08:11 10/22/23 07:10
I&O
10/21/23 10/22/23 10/23/23
06:59 06:59 06:59
Intake Total 1320 / 1320 1070 / 1070
Output Total 350 / 350 1040 / 1040
Balance 970 / 970 30 / 30
Physical Exam
-
General: No Apparent Distress
HEENT: Normocephalic and Atraumatic
Respiratory: Negative Wheezes or Rales
Cardiac: Regular Rhythm and S1/S2
GI: Soft
Genito-urinary: No Costovertebral Tender
Neuro: AO x 3
Hematologic / Lymphatic: No Lymphadenopathy
Psych: Calm
Data Reviewed
-
Total Time Spent with Patient (in minutes): 40
Labs: Labs Reviewed by me
[2023-10-22 12:05] LABS: Glucose - Point of Care 213 mg/dl (70-99)
[2023-10-22 12:10] VITALS: BP 132/63; PULSE 73; O2SAT 100
--- NOTE | 2023-10-22 13:37 | W.PN.ID1 ---
Date of Service
Date of Service: October 22, 2023
Today's Communication
tentatively plan to complete 5 day course of doxycycline post op through 10/22;
Assessment / Plan
Suspected Osteomyelitis 3rd distal phalanx, middle phalanx
- bone culture by report with MRSA
Suspected osteomyelitis 2nd metarasal head - lateral aspect
Cellulitis
Dm2
PAD
- tentatively plan to complete 5 day course of doxycycline post op through 10/22; will follow up podiatry recommendations and update
- follow up with podiatry
Chief Complaint
-: Other (osteomyelitis, gangrene )
Subjective / Review of Systems
afebrile
bp stable
without leukocytosis
cr stable
Vital Signs / Physical Exam
Vital Signs
Vital Signs
Temp Pulse Resp BP Pulse Ox
97.7 F 79 16 155/79 99
10/22/23 07:10 10/22/23 08:11 10/22/23 07:10 10/22/23 08:11 10/22/23 07:10
Physical Exam
Constitutional: No Acute Distress
Cardiovascular: Regular Rate
Pulmonary: Symmetric and Non Labored
Gastrointestinal: Non Distended
Skin: Warm and Dry; Negative Rash or Jaundice
Neurological: Awake
Objective Data
Lab Data
Lab Results
10/22/23 05:23
10/22/23 05:23
ESR 91 mm/hour (0-20) H 10/16/23 18:08
PT 16.2 Sec (11.4-14.6) H 10/20/23 07:17
INR 1.32 10/20/23 07:17
APTT 34.0 Sec (23.4-35.0) 10/20/23 07:17
Estimated Creat Clear 93 ml/min 10/22/23 05:23
Total Bilirubin 0.6 mg/dl (0.2-1.3) 10/16/23 18:08
AST 17 U/L (17-59) 10/16/23 18:08
ALT < 10 U/L (0-50) 10/16/23 18:08
Alkaline Phosphatase 99 U/L (38-126) 10/16/23 18:08
C-Reactive Protein 20.90 mg/L (0.0-10.00) H 10/16/23 18:08
Most recent labs reviewed.
Micro Results:
10/19/23 16:19 Anaerobic Culture - Preliminary
Bone Culture pending. Anaerobic cultures are examined after 3
days incubation. Additional information to follow.
10/19/23 16:19 Tissue Culture - Final
Toe Gram Stain - Final
10/19/23 16:19 Tissue Culture - Preliminary
Bone Staph aureus MRSA
Gram Stain - Preliminary
10/16/23 18:29 Blood Culture - Final
Blood/Venous No Growth - Final Report
10/16/23 18:08 Blood Culture - Final
Blood/Venous No Growth - Final Report
10/17/23 00:12 MRSA Screen - Final
Nose Staph aureus MRSA
--- NOTE | 2023-10-22 14:57 | CM ---
Addendum entered by Newton Montenegro 10/22/23 15:04:
Therapy recommendation changed to SNF.
Original Note:
Plan to complete 5 days AB, F/U with podiatry and await pending bone pathology (toes) results. Discharge Plan of Care: Therapy recommending Acute Rehab. Patient and prefer to return to [facility] after discharge. Referral forwarded. Susan is
[facility] coordinator @ [phone].
[2023-10-22 15:00] VITALS: BP 134/68
[2023-10-22 17:12] LABS: Glucose - Point of Care 257 mg/dl (70-99)
[2023-10-22] MEDS: NOVOLOG FLEXPEN-LOW RESISTANCE 3 UNITS SC (17:15)
[2023-10-22] MEDS: LOVENOX 40 MG SC (17:15)
[2023-10-22] MEDS: BACTROBAN 2% OINTMENT TOPICAL (17:23)
--- NOTE | 2023-10-22 20:23 | CON.MR ---
Consultation
Consultation Request
Date/Time Consultation Performed: 10/22/23 1715
Performing Provider: Dr. Tsai
Reason for Consultation: Left 3rd toe amputation
Medical History
-
Chief Complaint: L foot pain, amputation
History of Present Illness:
I had the opportunity to see Feroz Baird in rehabilitation consultation this evening. This is an 83-year-old male with past medical history of atrial fibrillation currently not on Coumadin, diabetes with diabetic neuropathy, hypertension, prior
recent amputation of second left toe, peripheral vascular disease status post recent shockwave lithotripsy of the posterior tibial artery stenosis, balloon angioplasty of distal posterior tibial artery stenosis/left peroneal artery, Parkinson's
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
on antibiotics but admitted with continued worsening of the wound, swelling, redness, with wound culture were positive for MRSA.
Went to the OR on 10/18 for amputation of the 3rd left toe and metatarsal heads of 2nd and 3rd metatarsal. Also had:
1.)� Intravascular lithotripsy to left calcified posterior tibial artery stenosis (3 mm x 40 mm S4 shockwave balloon)
2.)� Intravascular lithotripsy to left calcified peroneal artery stenosis (3.5 mm x 40 mm S4 shockwave balloon)
3.)� Drug-coated balloon angioplasty to left popliteal artery stenosis (5 mm x 40 mm iNPACT drug-coated balloon)
4.)� Diagnostic aortobiiliac arteriogram
5.)� Diagnostic left lower extremity arteriogram
6.)� Ultrasound-guided percutaneous access to the right common femoral artery
Post-operative course generally unremarkable and is WBAT in post op shoe, and on zosyn /vanco to doxycycline to complete 5 day course post op through 10/22 per ID, blood cultures have been negative.
Patient seen at bedside this evening and sitting up in the bedside chair. Denies significant pain in the left foot or left lower limb. Minimal paresthesias in the left foot and slight in right foot. No dizziness or lightheadedness. No chest pain or
SOB. No GI complaints. States lives at [facility] in independent living section with his . Previously was mostly in the wheelchair due to the left foot wound and pain. Has a walker but wasn't really using it much pre-hospitalization.
Family History
Family History: Reviewed & Not Pertinent
Social History
Functional Level Premorbidity:
Was independent with wheelchair mobility prior. Minimal assistance needed for any ADL's prior.
Current Funct Level: Ambulation, Transfer, UE/LE Dressing:
With PT was Min A for transfers, Min A for ambulation with rolling walker.
Tobacco: Former Smoker
Personal:
Living: With Spouse
Is 24 hour care available: Yes
# Steps to Enter: 0
# Steps to Second Floor: 0
Potential First Floor Set Up: Yes
Allergies / Home Medications
Allergy/AdvReac Type Severity Reaction Status Date / Time
No Known Allergies Allergy Verified 10/16/23 18:22
Medication Instructions Recorded Confirmed Last Taken Type
acetaminophen 500 mg tablet 1,000 mg PO Q8H PRN mild pain 02/11/23 10/16/23 Unknown History
carbidopa 50 mg-levodopa 200 1 tab PO QID Neurological Condition 02/11/23 10/16/23 03/22/23 History
mg-entacapone 200 mg tablet
rotigotine 2 mg/24 hour 2 mg topical HS Neurological 02/11/23 10/16/23 03/21/23 History
transdermal 24 hour patch (Neupro) Condition
simvastatin 40 mg tablet 40 mg PO HS High Cholesterol 02/11/23 10/16/23 03/21/23 History
aspirin 81 mg chewable tablet 81 mg PO DAILY Blood Clot 10/16/23 10/16/23 Unknown History
Prevention/Tx
diltiazem HCl 30 mg tablet 30 mg PO BID Arrhythmia 10/16/23 10/16/23 Unknown History
doxycycline hyclate 100 mg tablet 100 mg PO BID Infection 10/16/23 10/16/23 Unknown History
losartan 50 mg tablet 50 mg PO DAILY Blood Pressure 10/16/23 10/16/23 Unknown History
magnesium hydroxide 400 mg/5 mL 15 ml PO Q72H PRN constipation 10/16/23 10/16/23 Unknown History
oral suspension (Milk of Magnesia)
melatonin 5 mg tablet 5 mg PO HS Sleep 10/16/23 10/16/23 Unknown History
metformin 1,000 mg tablet 1,000 mg PO BID Diabetes 10/16/23 10/16/23 Unknown History
mupirocin 2 % topical ointment 1 applic topical QPM Infection 10/16/23 10/16/23 Unknown History
sennosides 8.6 mg tablet (Senna 17.2 mg PO HS Constipation 10/16/23 10/16/23 Unknown History
Laxative)
Review Of Systems
-
History Source: Patient
All other systems: Negative unless noted
Constitutional: Reports Fatigue
Eye: Reports No Symptoms
EENT: Reports No Symptoms
Respiratory: Reports No Symptoms
Cardiac: Reports No Symptoms
Abdomen/GI: Reports No Symptoms
Musculoskeletal: Reports Muscle Pain
Integumentary: Reports No Symptoms
Neurological: Reports Weakness and Numbness
Psych: Reports No Symptoms
Endocrine: Reports No Symptoms
Hematologic/Lymphatic: Reports No Symptoms
Immunology: Reports No Symptoms
Physical Exam
Active Medications
Generic Name Dose Route Start Last Admin
Trade Name Freq PRN Reason Stop Dose Admin
Acetaminophen 650 mg 10/17/23 00:19 10/20/23 13:42
Acetaminophen 325 Mg Tablet PO 11/14/23 00:18 650 mg
Q4HPRN PRN Administration
mild pain/WRAY/temp>100.5
Aspirin 81 mg 10/17/23 08:00 10/22/23 08:11
Aspirin 81 Mg Chewable Tablet PO 11/14/23 07:59 81 mg
DAILY VARINDER Administration
Atorvastatin Calcium 20 mg 10/16/23 23:00 10/21/23 21:47
Atorvastatin (Lipitor) 20 Mg Tablet PO 11/13/23 22:59 20 mg
HS VARINDER Administration
Carbidopa/Levodopa 1 tablet 10/17/23 08:00 10/22/23 17:15
Carbidopa (50 Mg)/Levodopa (200 Mg) Extended Release Tablet PO 11/14/23 07:59 1 tablet
QID VARINDER Administration
Dextrose 12.5 grams 10/16/23 22:57
Dextrose 50% (0.5 Grams/Ml) 50 Ml Syringe IV 11/13/23 22:56
[id number] PRN
hypoglycemia
Protocol
Diltiazem HCl 30 mg 10/17/23 08:00 10/22/23 20:11
Diltiazem 30 Mg Regular Release Tablet PO 11/14/23 07:59 30 mg
BID VARINDER Administration
Doxycycline Hyclate 100 mg 10/21/23 06:00 10/22/23 17:15
Doxycycline 100 Mg Capsule PO 100 mg
Q12H VARINDER Administration
Enoxaparin Sodium 40 mg 10/18/23 18:00 10/22/23 17:15
Enoxaparin Sodium 40 Mg/0.4 Ml Syringe SC 11/15/23 17:59 40 mg
QPM VARINDER Administration
Entacapone 200 mg 10/17/23 08:00 10/22/23 17:15
Entacapone 200 Mg Tablet PO 11/14/23 07:59 200 mg
QID VARINDER Administration
Glucagon 1 mg 10/16/23 22:57
Glucagon 1 Mg Vial IM 11/13/23 22:56
PRN PRN
hypoglycemia
Protocol
Insulin Aspart 0 units 10/17/23 07:30 10/22/23 17:15
Insulin Aspart Low Resistance 300 Units/3 Ml Pen.Injctr SC 11/14/23 07:29 3 units
AC VARINDER Administration
Protocol
Losartan Potassium 50 mg 10/17/23 08:00 10/22/23 08:11
Losartan 50 Mg Tablet PO 11/14/23 07:59 50 mg
DAILY VARINDER Administration
Melatonin 5 mg 10/16/23 22:57 10/21/23 21:47
Melatonin 5 Mg Tablet PO 11/13/23 22:56 5 mg
HS VARINDER Administration
Metformin HCl 1,000 mg 10/17/23 08:00 10/22/23 20:11
Metformin 1000 Mg Regular Release Tablet PO 11/14/23 07:59 1,000 mg
BID VARINDER Administration
Mupirocin 1 applic 10/17/23 18:00 10/22/23 17:23
Mupirocin 2% (Ointment) 22 Gram Tube TOPICAL Not Given
QPM VARINDER
Polyethylene Glycol 17 grams 10/20/23 12:00 10/22/23 08:11
Polyethylene Glycol Powder 17 Grams Packet PO 11/17/23 11:59 17 grams
DAILY VARINDER Administration
Rotigotine 2 mg 10/16/23 22:57 10/21/23 21:47
Rotigotine (Neupro) 2 Mg Patch TOPICAL 11/13/23 22:56 2 mg
HS VARINDER Administration
Sennosides 17.2 mg 10/16/23 22:57 10/21/23 21:49
Sennosides (Senokot) 8.6 Mg Tablet PO 11/13/23 22:56 Not Given
HS VARINDER
Sodium Chloride 0 flush 10/16/23 22:00 10/21/23 20:41
Sodium Chloride 0.9% (Flush) Syringe IV 11/13/23 21:59 1 flush
PER PROTOCOL VARINDER Administration
Vital Signs
Temp Pulse Resp BP Pulse Ox
98.2 F 85 16 138/73 100
10/22/23 15:00 10/22/23 20:11 10/22/23 15:00 10/22/23 20:11 10/22/23 15:00
Height 5 ft 11 in
Actual Weight 99.065 kg
Body Mass Index (BMI) 30.5
Physical Exam
Physical Exam:
General Appearance/Observation: Well-developed, well-nourished individual in no apparent distress sitting up in bedside chair
Pain/Comfort Assessment: 09/08 in left foot
Mood/Affect: Appropriate
Integumentary/Operative Site:
Other Type of Wound: left foot dressing clean and dry, wound not visualized
Eyes: Conjunctiva/Lids: normal Pupils: pupils equal round and reactive to light and Accommodation
Ears/Nose/Throat: oral mucosa moist, throat clear. Lips/Teeth/Gums: normal
Neck: No muscle spasm or tenderness
Cardiovascular: Heart: irregularly irregular, no murmur
Respiratory: Respiratory Effort/Chest Expansion: normal Auscultation: Clear to auscultation bilaterally
Gastrointestinal: abdomen not tender, no distension, normal abdominal bowel sounds
Genitourinary: No Pérez
Rectal Exam: Deferred
Extremities: Edema: 1+ bilateral distal edema and foot. Trophic changes: None
Neurology Exam:
Orientation: Alert, Oriented to self, Time, Place
Memory: Intact immediately and at 3 minutes
Higher cortical function
Speech: Intact
Repetition: Intact
Comprehension: Intact
Two step command: Intact
Naming: Intact
Cranial Nerves: - intact and symmetric bilaterally
Sensory:
Light touch: Slight decreased bilateral feet compared to proximal leg but denies any asymmetry in the feet or toes. No deficits or asymmetry in the upper limbs.
Reflexes:
Biceps:trace bilaterally
Triceps:trace bilaterally
Achilles: Absent bilaterally
Clonus: None
Alex: Negative bilaterally
Cerebellar: Dysmetria/Ataxia: None
Musculoskeletal:
Motor: (Manual muscle scale 0-5)
Muscle SA EF WE EE FF FA HF KE DF EHL PF
Right 5 5 5 5 5 4+ 5 5 5 4+ 5
Left 5 5 5 5 5 4 5 5 5 4+ 5
Tone: Normal in all extremities. Mild atrophy in the FDI left more than right
Range of Motion: Passively within normal limits in all extremities
Lab Results
10/22/23 05:23
10/22/23 05:23
WBC 8.8 10^3/uL (4.8-10.8) 10/22/23 05:23
Hgb 9.0 g/dL (13.0-18.0) L 10/22/23 05:23
Hct 28.1 % (39.0-52.0) L 10/22/23 05:23
MCV 87.8 fL (80.0-94.0) 10/22/23 05:23
Plt Count 229 10^3/uL (130-400) 10/22/23 05:23
ESR 91 mm/hour (0-20) H 10/16/23 18:08
PT 16.2 Sec (11.4-14.6) H 10/20/23 07:17
INR 1.32 10/20/23 07:17
Sodium 135 mmol/L (135-145) 10/22/23 05:23
Potassium 4.2 mmol/L (3.5-5.1) 10/22/23 05:23
Chloride 101 mmol/L (98-107) 10/22/23 05:23
Carbon Dioxide 27 mmol/L (22-30) 10/22/23 05:23
BUN 16 mg/dl (9-20) 10/22/23 05:23
Creatinine 0.7 mg/dL (0.7-1.3) 10/22/23 05:23
eGFR > 60.00 10/22/23 05:23
Glucose 208 mg/dl (70-99) H 10/22/23 05:23
Hemoglobin A1c 6.6 % (4.0-5.6) H 10/17/23 05:59
Calcium 8.7 mg/dl (8.4-10.2) 10/22/23 05:23
Total Bilirubin 0.6 mg/dl (0.2-1.3) 10/16/23 18:08
AST 17 U/L (17-59) 10/16/23 18:08
ALT < 10 U/L (0-50) 10/16/23 18:08
Alkaline Phosphatase 99 U/L (38-126) 10/16/23 18:08
C-Reactive Protein 20.90 mg/L (0.0-10.00) H 10/16/23 18:08
Total Protein 6.6 g/dl (6.3-8.2) 10/16/23 18:08
Albumin 3.3 g/dl (3.5-5.0) L 10/16/23 18:08
Diagnostic Results
As per HPI.
Comorbidities / Impairment Group
Comorbidities:
Peripheral vascular disease, peripheral neuropathy, parkinson's disease, atrial fibrillation, HTN
Impairment Group:
L foot amputation
Assessment / Plan
Plan
Assessment:
83 year old male with peripheral vascular disease and recent osteomyelitis left foot s/p left 3rd toe amputation and 3rd metatarsal head resection and revision of 2nd metatarsal head resection.
PM&R PT/OT to increase independence with ADLs, improve balance, coordination, endurance, strength, mobility, community reintegration, decreased burden of care on others and family education.
Peripheral polyneuropathy: Patient with a stocking and glove polyneuropathy distribution pattern. Likely due to diabetic neuropathy vs. peripheral vascular disease component.
3rd toe Amputation: Monitor incision, edema control, pain control, desensitization, wound care.
HTN: continue cardizem, losartan, monitor closely
HLD: Statin
Atrial fibrillation: Currently off anticoagulation with fall risk - continue to monitor. continue rate control medications, cardizem.
DM II: Accu-Cheks, insulin sliding scale, metformin.
Parkinsons: On Sinemet, Comtan
Psych: Psychology consult. Monitor mood, adjust medications as needed.
Skin: monitor for pressure sores/rashes/lesions. Wound care at surgical sites.
Pain: acetaminophen or oxycodone as needed.
Bowel: Colace and Senna, PRN bisacodyl.
Bladder: Time void, PVRs, PRN straight cath.
DVT Prophylaxis: On Lovenox. No other anticoagulation for afib.
Pulmonary: Incentive spirometry
Safety: Continue to reinforce assistance with all transfers.
Code Status: Full code
Dispo (date/plan/equipment needs): Was previously at independent living at [facility]
Functional and Medical Goals: Modified Independent with ADL�s, ambulation, transfers
Summary
-
Things that must be addressed in Hospital prior to discharge:
1. Please continue bedside PT/OT.
2. Patient must be stable on oral pain medications.
3 Please give blood pressure parameters.
4. Please comment on any further L foot weight bearing precaution
Discharge Destination: SNF rehab
Summary of recommendations:
- Discharge Destination: SNF rehab before return back to independent living at [facility]
Will sign off, please re-consult if needed.
Thank you for allowing me to care for your patient. Please contact me with any questions or concerns.
Data Reviewed
-
Radiology: Report Reviewed by me
Labs: Labs Reviewed by me
Comments
-
This note was dictated using a voice recognition system. Please excuse any typographical errors from chain maker hand. If you believe there are any discrepancies, please notify our office.
[2023-10-22 21:43] LABS: Glucose - Point of Care 272 mg/dl (70-99)
[2023-10-22] MEDS: MELATONIN 5 MG PO (21:54)
[2023-10-22] MEDS: SENOKOT 17.1999999999999993 MG PO (21:54)
[2023-10-22] MEDS: LIPITOR 20 MG PO (21:54)
[2023-10-22] MEDS: NEUPRO 2 MG TOPICAL (21:54)
[2023-10-22 22:15] VITALS: PULSE 90
[2023-10-22 23:37] VITALS: BP 139/88
[2023-10-23] MEDS: VIBRAMYCIN 100 MG PO ×2 (06:29→16:10)
[2023-10-23 06:57] LABS: Glucose - Point of Care 174 mg/dl (70-99)
[2023-10-23 07:30] VITALS: BP 146/87
--- NOTE | 2023-10-23 08:19 | W.PN.POD ---
Today's Communication
Today's Communication
Wound cleansed and redressed.
Wound care upon DC to SNF: Cleanse wound with wound cleansing spray, pat dry w/ 4x4, apply medihoney , folded 4x4 and affix with mefix tape daily
Weight bearing in post op shoe for distances of up to 75 feet, elevate LE's when not walking (ie at rest) avoid prolonged standing left foot
Assessment / Plan
-
POD# 4 S/p amp left 3rd toe/met and 2nd met head
DM2 with PAD S/P revasc LLE
DPN with LOPS
Parkinsons dx with gait dysfunction
Subjective
Chief Complaint
Gangrene left 2nd toe w/OM PAD LLE
Subjective
POD #4 S/P resection 2nd toe and MTH and 3rd MTH left foot
Objective
Temp Pulse Resp BP Pulse Ox
98.3 F 72 18 146/87 100
10/23/23 07:30 10/23/23 07:30 10/23/23 07:30 10/23/23 07:30 10/23/23 07:30
10/22/23 05:23
10/22/23 05:23
Vital Signs and Lab results were reviewed.
Inspection: Cellulitis (none) and Ulcer (incision w/dehiscence)
Review of Systems
Review of Systems
Review of Systems: No Fever, No Chills, No Headache, No Nausea, No Diarrhea and No Skin Rash
Physical Exam
Physical Exam
General: No Apparent Distress and Comfortable
Skin: Warm, Dry and Other (Incision now with central dehiscence -serosanguinous drainage expressed. NO erythema or edema, no maceration or malodor)
Neuro: AO x 3 and Protective Sensation Absent
Vascular: Capillary Refill Delayed
Dorsalis Pedis: Other (audible with handheld doppler)
Posterior Tibialis: Other (audible with handheld doppler)
[2023-10-23] MEDS: CARDIZEM 30 MG PO (08:46)
[2023-10-23] MEDS: SINEMET CR 50/200 (EXTENDED RELEASE) 1 TABLET PO ×2 (08:46→13:12)
[2023-10-23] MEDS: GLUCOPHAGE 1000 MG PO (08:46)
[2023-10-23] MEDS: LOW STRENGTH ASPIRIN 81 MG PO (08:46)
[2023-10-23] MEDS: COMTAN 200 MG PO ×2 (08:46→13:12)
[2023-10-23] MEDS: MIRALAX 17 GRAMS PO (08:46)
[2023-10-23] MEDS: COZAAR 50 MG PO (08:48)
[2023-10-23] MEDS: NOVOLOG FLEXPEN-LOW RESISTANCE 1 UNITS SC (08:49)
--- NOTE | 2023-10-23 09:37 | CM ---
Addendum entered by SID Reina 10/23/23 10:05:
Received return call from Susan in admissions at [facility], who confirmed that patient is actually Medicare and needs no authorization. This was communicated to the attending.
Will update patient's RN and 2N manager community development. Will complete medical necessity and transport sheet.
Susan stated that # for report is [phone] and fax# [phone]
Original Note:
Received notification from attending through TT that patient has been cleared for discharge. Placed a call to Susan in admissions at [facility], CM put in previous note, however had to leave a voice mail message. Requested return call with
confirmation regarding bed availability. Also request was made for auth# for provider and facility. Will await return call. If no return call has been received soon, will return call to facility.
Plan: Case management will continue to follow and assist with discharge planning. Hopeful transfer back to [facility] upon authorization.
--- NOTE | 2023-10-23 10:21 | W.PN.HOSP.TC ---
Today's Communication/Plan
-
dc to SNF
Assessment / Plan
Assessment / Plan
83-year-old male past medical history of atrial fibrillation not on Coumadin anymore, diabetes, diabetic neuropathy, hypertension, prior recent amputation of second left toe, peripheral vascular disease status post recent shockwave lithotripsy of
the posterior tibial artery stenosis, balloon angioplasty of distal posterior tibial artery stenosis/left peroneal artery, Parkinson's disease, obstructive sleep apnea, presented with infected third left toe concerning for osteomyelitis.�Labs show
progressive worsening of hemoglobin from 12 in January to 8.8 at this time.�
Assessment:
L foot cellulitis with 2nd metatarsal acute osteomyelitis, 3rd toe acute osteomyelitis
- s/p L 3rd toe amputation 10/18 by podiatry
- continue WBAT in post-op shoes, follow wound care recs
- follow path
- per ID; continue Doxy through 10/22. Bone culture grew MRSA
- PT/OT - SNF
h/o PAD/ peripheral neuropathy
- arterial LE US confirmed Left infrapopliteal artery disease.
- s/p A-gram 10/18 with balloon angioplasty to left popliteal artery stenosis, lithotripsy left calcified posterior tibial artery stenosis, lithotripsy to left calcified peroneal artery stenosis
- continue ASA/Statin/Plavix
- f/u in Vascular office in 4 weeks
Chronic atrial fibrillation
- continue Cardizem
- not on AC due to hx of falls
Essential hypertension
- continue Cardizem/Losartan
- monitor BP
Type 2 diabetes
- continue Metformin
- Insulin sliding scale
- A1c is 6.6%
Hyperlipidemia
- statin
Parkinson's disease
- continue home [id number] (Stalevo)
- continue Neupro
EAMON on CPAP
H/O Right eye malignancy
Ex Smoker
Chronic gait dysfunction
DVT ppx: Lovenox
Code: Full
Family contact: daughter Carleen [phone]
More than 30 minutes spent in discharge including
Final examination of the patient
Summarizing hospital stay
Instructions for continuing care to all relevant caregivers
Preparation of discharge records, prescriptions, and referral forms
Total time spent (in minutes):42
Anticipated Discharge: Today
Subjective/Interval History
-
Date of Service: October 23, 2023
slightly groggy, did not sleep well last night per RN with some sundowning
able to state name, location, plan for dc as well as facility
Objective Data
-
Vital Signs:
Vital Signs
Temp Pulse Resp BP Pulse Ox
98.3 F 72 18 146/87 100
10/23/23 07:30 10/23/23 08:48 10/23/23 07:30 10/23/23 08:48 10/23/23 07:30
I&O
10/22/23 10/23/23 10/24/23
06:59 06:59 06:59
Intake Total 1070 / 1070 960 / 960
Output Total 1040 / 1040 2100 / 2100
Balance 30 -1140 / -1140
Physical Exam
-
General: No Apparent Distress
HEENT: Normocephalic and Atraumatic
Respiratory: Clear to Auscultation; Negative Wheezes or Rales
Cardiac: Regular Rhythm and S1/S2
GI: Soft
Musculoskeletal: No Edema
Neuro: AO x 3
Hematologic / Lymphatic: No Lymphadenopathy
Psych: Calm
Data Reviewed
-
Total Time Spent with Patient (in minutes): 42
Labs: Labs Reviewed by me
--- NOTE | 2023-10-23 10:35 | W.DS.TRANS ---
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
-
Discharge Instructions:
Discharge Diagnosis/Procedures L foot cellulitis, 2nd metatarsal/3rd toe
osteomyelitis s/p 3rd toe amputation 10/18
Left lower extremity arteriogram with
intervention 10/18
Diet Diabetic, Carb Controlled,Low Cholesterol,Low
Fat
Activity With assistance,With Walker,No strenuous
activity
Additional Activity elevate LEs when not walking, may walk in post
op shoe up to 75 feet w/assistance
Others Tests Your follow up ultrasound is scheduled on
2023 at 11am here at [facility]
Wound Care Cleanse wound with wound cleansing spray, pat
dry w/ 4x4, apply medihoney , folded 4x4 and
affix with mefix tape daily
Instructions:
Stand-Alone Forms: DC Instr - Vascular OR
Changes to Home Medications: No
Discharge Medications:
DC Medications w/original date entered in [employer]
acetaminophen 500 mg tablet 1,000 mg PO Q8H PRN mild pain 02/11/23
carbidopa 50 mg-levodopa 200 mg-entacapone 200 mg tablet 1 tab PO QID Neurological Condition 02/11/23
rotigotine 2 mg/24 hour transdermal 24 hour patch (Neupro) 2 mg topical HS Neurological Condition 02/11/23
simvastatin 40 mg tablet 40 mg PO HS High Cholesterol 02/11/23
aspirin 81 mg chewable tablet 81 mg PO DAILY Blood Clot Prevention/Tx 10/16/23
diltiazem HCl 30 mg tablet 30 mg PO BID Arrhythmia 10/16/23
losartan 50 mg tablet 50 mg PO DAILY Blood Pressure 10/16/23
magnesium hydroxide 400 mg/5 mL oral suspension (Milk of Magnesia) 15 ml PO Q72H PRN constipation 10/16/23
melatonin 5 mg tablet 5 mg PO HS Sleep 10/16/23
metformin 1,000 mg tablet 1,000 mg PO BID Diabetes 10/16/23
mupirocin 2 % topical ointment 1 applic topical QPM Infection 10/16/23
sennosides 8.6 mg tablet (Senna Laxative) 17.2 mg PO HS Constipation 10/16/23
polyethylene glycol 3350 17 gram oral powder packet (HealthyLax) 17 g PO DAILY #30 ea 10/23/23
Home Medication Changes
Pending Results: No
Total time spent discharging patient (in min): 42
[2023-10-23 11:48] LABS: Glucose - Point of Care 294 mg/dl (70-99)
--- NOTE | 2023-10-23 12:51 | PTCARENOTE ---
Report given to Linn ware [place] [phone]. Ambulance pickling operator time at 4pm.
[2023-10-23] MEDS: NOVOLOG FLEXPEN-LOW RESISTANCE 3 UNITS SC (13:13)
--- NOTE | 2023-10-23 15:11 | W.PN.ID1 ---
Date of Service
Date of Service: October 23, 2023
Today's Communication
- OR culture finalized negative, path pending; Xray consistent with likely surgical cure
- complete 5 day course of doxycycline post op through 10/22;
- follow up with podiatry
Assessment / Plan
Suspected Osteomyelitis 3rd distal phalanx, middle phalanx
- bone culture by report with MRSA
Suspected osteomyelitis 2nd metarasal head - lateral aspect
Cellulitis
Dm2
PAD
- OR culture finalized negative, path pending; Xray consistent with likely surgical cure
- complete 5 day course of doxycycline post op through 10/22;
- follow up with podiatry
Chief Complaint
-: Other (osteomyelitis, gangrene )
Subjective / Review of Systems
afebrile
bp stable
tolerating current therapies
no new complaints
final day of antibiotics
Vital Signs / Physical Exam
Vital Signs
Vital Signs
Temp Pulse Resp BP Pulse Ox
98.3 F 72 18 146/87 100
10/23/23 07:30 10/23/23 08:48 10/23/23 07:30 10/23/23 08:48 10/23/23 07:30
Physical Exam
Constitutional: No Acute Distress
Cardiovascular: Regular Rate and S1/S2; Negative Murmur or Rub
Pulmonary: Clear and Symmetric; Negative Wheezes or Rales
Gastrointestinal: Soft, Non Tender, Non Distended and Normal Bowel Sounds
Skin: Warm and Dry; Negative Rash or Jaundice
Objective Data
Lab Data
Lab Results
10/22/23 05:23
10/22/23 05:23
ESR 91 mm/hour (0-20) H 10/16/23 18:08
PT 16.2 Sec (11.4-14.6) H 10/20/23 07:17
INR 1.32 10/20/23 07:17
APTT 34.0 Sec (23.4-35.0) 10/20/23 07:17
Estimated Creat Clear 93 ml/min 10/22/23 05:23
Total Bilirubin 0.6 mg/dl (0.2-1.3) 10/16/23 18:08
AST 17 U/L (17-59) 10/16/23 18:08
ALT < 10 U/L (0-50) 10/16/23 18:08
Alkaline Phosphatase 99 U/L (38-126) 10/16/23 18:08
C-Reactive Protein 20.90 mg/L (0.0-10.00) H 10/16/23 18:08
Most recent labs reviewed.
Micro Results:
10/19/23 16:19 Anaerobic Culture - Preliminary
Bone Culture pending. Anaerobic cultures are examined after 3
days incubation. Additional information to follow.
10/19/23 16:19 Tissue Culture - Final
Toe Gram Stain - Final
10/19/23 16:19 Tissue Culture - Preliminary
Bone Staph aureus MRSA
Gram Stain - Preliminary
10/16/23 18:29 Blood Culture - Final
Blood/Venous No Growth - Final Report
10/16/23 18:08 Blood Culture - Final
Blood/Venous No Growth - Final Report
10/17/23 00:12 MRSA Screen - Final
Nose Staph aureus MRSA
[2023-10-23 15:28] VITALS: BP 150/74
== END 2023-10-23 16:20 | DRG 617 ==
LOC: 2 NORTH 20:59
PROVIDERS: Internal Medicine; Internal Medicine Gastroenterology; Nurse Practitioner Acute Care; Physician Assistant; Registered Nurse; Surgery Vascular Surgery; ADMITTING PHYSICIAN Hospitalist; ATTENDING PHYSICIAN Internal Medicine; CONSULT PHYSICIAN Physical Medicine & Rehabilitation; CONSULT PHYSICIAN Podiatrist Foot & Ankle Surgery; CONSULT PHYSICIAN Student in an Organized Health Care Education/Training Program; EMERGENCY PHYSICIAN Student in an Organized Health Care Education/Training Program; FAMILY PHYSICIAN Family Medicine; OTHER PHYSICIAN Surgery Vascular Surgery
PROC: 5A09357 Assistance with Respiratory Ventilation, Less than 24 Consecutive Hours, Continuous Positive Airway Pressure (ICD-10-PCS; 2023-10-17)
PROC: B4101ZZ Fluoroscopy of Abdominal Aorta using Low Osmolar Contrast (ICD-10-PCS; 2023-10-19)
PROC: 0Y6N0ZB Detachment at Left Foot, Partial 2nd Ray, Open Approach (ICD-10-PCS; 2023-10-19)
PROC: 04FU3ZZ Fragmentation of Left Peroneal Artery, Percutaneous Approach (ICD-10-PCS; 2023-10-19)
PROC: 04FS3ZZ Fragmentation of Left Posterior Tibial Artery, Percutaneous Approach (ICD-10-PCS; 2023-10-19)
PROC: B41G1ZZ Fluoroscopy of Left Lower Extremity Arteries using Low Osmolar Contrast (ICD-10-PCS; 2023-10-19)
PROC: 0Y6U0Z0 Detachment at Left 3rd Toe, Complete, Open Approach (ICD-10-PCS; 2023-10-19)
PROC: 047N3Z1 Dilation of Left Popliteal Artery using Drug-Coated Balloon, Percutaneous Approach (ICD-10-PCS; 2023-10-19)
PROC: B41C1ZZ Fluoroscopy of Pelvic Arteries using Low Osmolar Contrast (ICD-10-PCS; 2023-10-19)
DX: E11.69 Type 2 diabetes mellitus with other specified complication (principal); E11.52 Type 2 diabetes mellitus with diabetic peripheral angiopathy with gangrene; M86.172 Other acute osteomyelitis, left ankle and foot; I48.20 Chronic atrial fibrillation, unspecified; I70.262 Atherosclerosis of native arteries of extremities with gangrene, left leg; L03.116 Cellulitis of left lower limb; E11.628 Type 2 diabetes mellitus with other skin complications; E11.40 Type 2 diabetes mellitus with diabetic neuropathy, unspecified; L97.529 Non-pressure chronic ulcer of other part of left foot with unspecified severity; E11.621 Type 2 diabetes mellitus with foot ulcer; I10 Essential (primary) hypertension; B95.62 Methicillin resistant Staphylococcus aureus infection as the cause of diseases classified elsewhere; E78.00 Pure hypercholesterolemia, unspecified; R29.6 Repeated falls; G20.A1 Parkinson's disease without dyskinesia, without mention of fluctuations; G47.33 Obstructive sleep apnea (adult) (pediatric); D64.9 Anemia, unspecified; R26.9 Unspecified abnormalities of gait and mobility; Z85.840 Personal history of malignant neoplasm of eye; Z79.4 Long term (current) use of insulin; Z89.422 Acquired absence of other left toe(s); Z79.84 Long term (current) use of oral hypoglycemic drugs; Z87.891 Personal history of nicotine dependence; Z91.81 History of falling
CPT/HCPCS: 88304; 88311; 73630; 75625; 75716; 76937; 80048; 80053; 80202; 82607; 82728; 82746; 82962; 83036; 83540; 83550; 85025; 85027; 85610; 85652; 85730; 86140; 87040; 87070; 87075; 87147; 87176; 87186; 87205; 93005; 93922; 93925; 94660; 96365; 97162; 97166; 97168; 97530; 99285; C1769; C1894; C2623; C9764; C9772

== ENCOUNTER → 2023-11-12 11:13 | Outpatient (REF) | payer MEDICARE, SELFPAY | LOC: RAD 11:13 | PROVIDERS: ATTENDING PHYSICIAN Surgery Vascular Surgery; FAMILY PHYSICIAN Internal Medicine | DX: I73.9 Peripheral vascular disease, unspecified (principal) | CPT/HCPCS: 93922; 93925 ==

== ENCOUNTER 2023-12-02 07:40 | Emergency (ER) | payer MEDICARE, SELFPAY ==
[2023-12-02 07:51] VITALS: BP 141/63
[2023-12-02 08:58] VITALS: BMI 31.8
[2023-12-02 09:18] LABS: % Basophils 1.3 % (0-2); % Eosinophils 12.3 % (0-6); % Immature Granulocytes 0.4 % (0-0.5); % Lymphocytes 19.5 % (20.5-51.1); % Monocytes 6.3 % (1.7-9.3); % Neutrophils 60.2 % (42.2-75.2); Absolute Basophils 0.1 10^3/uL (0-0.2); Absolute Eosinophils 0.9 10^3/uL (0-0.7); Absolute Lymphocytes 1.5 10^3/uL (1.2-3.4); Absolute Monocytes 0.5 10^3/uL (0.1-0.6); Absolute Neutrophils 4.5 10^3/uL (1.4-6.5); Hematocrit 27.7 % (39.0-52.0); Hemoglobin 9.2 g/dL (13.0-18.0); Mean Corp Hgb Conc. 33.2 g/dL (33.0-37.0); Mean Corpuscular Hgb 27.2 pg (27.0-31.0); Mean Platelet Volume 10.1 fL (7.4-10.4); Nucleated Red Blood Cells % 0 % (-); Platelet Count 253 10^3/uL (130-400); Red Blood Cell Count 3.38 10^6/uL (4.70-6.10); Red Cell Dist. Width 15.9 % (11.5-14.5); White Blood Cell Count 7.5 10^3/uL (4.8-10.8)
[2023-12-02 09:27] LABS: INR 1.28; PT 15.8 Sec (11.4-14.6)
[2023-12-02 09:37] LABS: ALT (SGPT) < 10 U/L (0-50); AST (SGOT) 13 U/L (17-59); Albumin 3.5 g/dl (3.5-5.0); Alkaline Phosphatase 97 U/L (38-126); Blood Urea Nitrogen 24 mg/dl (9-20); Calcium 8.8 mg/dl (8.4-10.2); Carbon Dioxide 23 mmol/L (22-30); Chloride 108 mmol/L (98-107); Estimated Creatinine Clearance 83 ml/min; Glucose 94 mg/dl (70-99); Potassium 4.1 mmol/L (3.5-5.1); Sodium 134 mmol/L (135-145); Total Bilirubin 0.7 mg/dl (0.2-1.3); Total Protein 6.5 g/dl (6.3-8.2); eGFR > 60.00
[2023-12-02 09:39] LABS: C-Reactive Protein < 5.00 mg/L (0.0-10.00)
--- NOTE | 2023-12-02 09:46 | ED.GENMED ---
History of Present Illness
General
Chief Complaint: Extremity Pain (non-traumatic)
Source: patient, records, spouse and family
Time Seen by Provider: 12/02/23 08:05
Travel History
Have you had any contact with someone who has COVID-19?: No
Do you have any symptoms of coronavirus? Fever > 100 degrees, chills, cough, shortness of breath, sore throat, loss of taste or smell, muscle aches, or headache?: No
History of Present Illness
History of Present Illness:
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
to the left great toe and subsequently noticing a purpleish discoloration to the great toe. Patient states that he has been following with his senior staff psychologist every 10 days since his operation and has an appointment scheduled with podiatry tomorrow.
Patient has been getting daily wound dressing changes at home with visiting nurse as well as at the wound care center. Family states that they feel that the small area of dehiscence has gotten a little bit bigger since surgery. Patient denies any
pain presently, fevers, chills, rigors or any other concerns. Family notes that coloration of the patient's skin on the great toe is back to normal. Of note, patient states that the dressing that he had in place originally from the wound care
nurse had started to fall off so he had to put tape and other bandages overlying the area.
Past History
Past History
ED Past Medical History: Arrthythmia, Cancer, HTN and IDDM
ED Past Surgical History: Cardiac and Orthopedic
Social History
Tobacco: Non-smoker
Alcohol: None
Drug: None
Personal:
Living: with family
Review of Systems
Review of Systems
All Other Systems: ROS reviewed and negative except as documented in HPI and ROS
Phy Exam
Physical Exam
Physical Exam:
GENERAL: Alert , in no apparent distress
EYE: conjunctiva clear
Head: Normocephalic atraumatic
NECK: Supple,
ENT: mmm.
LUNGS: no acute respiratory distress
NEUROLOGICAL: Alert and oriented
SKIN: Warm and dry, small area of dehiscence overlying the distal third metatarsal with no surrounding erythema. Slightly wet but no active purulence. 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
MUSCULOSKELETAL: Patient had a dopplerable tibial pulse but unable to assess pedal pulse with Doppler. Patient is able to range of motion his great toe without any pain or
PSYCH: Normal and appropriate interaction.
Scores
Heart Failure Risk
Heart Failure Risk Score: Not Applicable
Heart Score for Chest Pain Patients
STEMI patient?: Not applicable
Withdrawal Assessment of Alcohol
Withdrawal Assessment Completed?: Not applicable
Course
Orders/Labs/Results
Orders:
Orders
12/02/23 09:06
C-Reactive Protein Urgent
Complete Blood Count/With Diff Urgent
Comprehensive Metabolic Panel Urgent
Erythrocyte Sed Rate Urgent
Prothrombin Time Urgent
Wound Culture [Wound/Abscess/Other Culture] Urgent
CARLITA Source: Foot
Specimen Description: Left
Date Specimen was Collected: 12/02/23
Time Specimen was Collected: 09:00
Abnormal Lab Results
12/02/23
09:06
RBC 3.38 L 10^6/uL
(4.70-6.10)
Hgb 9.2 L g/dL
(13.0-18.0)
Hct 27.7 L %
(39.0-52.0)
RDW 15.9 H %
(11.5-14.5)
Absolute Eos (auto) 0.9 H 10^3/uL
(0-0.7)
Lymphocytes % 19.5 L %
(20.5-51.1)
Eosinophils % 12.3 H %
(0-6)
PT 15.8 H Sec
(11.4-14.6)
Sodium 134 L mmol/L
(135-145)
Chloride 108 H mmol/L
(98-107)
BUN 24 H mg/dl
(9-20)
AST 13 L U/L
(17-59)
12/02/23 09:06
12/02/23 09:06
Vital Signs
Initial and Last Documented VS:
Initial Vital Signs
Temp Pulse Resp BP Pulse Ox
98.3 F 81 18 141/63 99
12/02/23 07:51 12/02/23 07:51 12/02/23 07:51 12/02/23 07:51 12/02/23 07:51
Last Documented Vital Signs
Temp Pulse Resp BP Pulse Ox
98.3 F 75 18 145/70 99
12/02/23 07:51 12/02/23 09:55 12/02/23 09:55 12/02/23 09:55 12/02/23 09:55
MDM/Problems Addressed
Differential Diagnosis Includes:
Intermittent claudication, peripheral arterial disease, peripheral vascular disease osteomyelitis/cellulitis
MDM/Problems Addressed:
83-year-old male presenting the emergency department for evaluation of sudden onset great toe pain with discoloration around 5:30 AM and since arrival to the emergency department symptoms have all been resolved. Patient did have a homemade bandage
on his foot which I do suspect could have potentially had too much pressure which may have caused the brief episode of pain and discoloration to the foot. This dressing was removed. Patient was advised to not place tape directly on his foot as
there is also some mild irritation to the skin along the midfoot but without any overlying signs of cellulitis. I contacted vascular surgery due to patient's history as well as symptoms and we reviewed his last angiogram that was done in September of
this year which showed that patient has a chronic occluded anterior tibial artery which is likely reason for being unable to get a dopplerable pedal pulse. Per vascular if patient's pain is resolved and there is no further discoloration he can be
safely discharged home. Patient has follow-up already arranged with his usual vascular surgeon, Dr. Pérez, on December 09 and has an appointment scheduled with his senior staff psychologist, Dr. Max, tomorrow morning. Patient and family both feel comfortable with
this plan. Stable for discharge home.
Chronic conditions affecting care: DM
*Pulse Oximetry
Patient hypoxic: no
*Critical Care Note
Total Time (30-74mins, 75-104mins- exclusive of procedures): Not Applicable
Data Reviewed
Review of Other/Old Records Reveals: Labs and Records
Patient Management
Discussion with other providers: Network Security Administrator
ED Attending Note
-
Portions of this chart may have been created with voice recognition software.� Occasional wrong word or��sound alike� substitutions may have occurred due to the inherent limitations of voice recognition software.
Discharge Plan
Departure
Patient Disposition: Home (Routine Discharge)
Date of Disposition: 12/02/23
Time of Disposition: 09:46
Patient with high blood pressure during this ER visit?: No
Discharge Problem:
PAD (peripheral artery disease), Postoperative wound breakdown
Instructions: Peripheral artery disease and claudication
Prescriptions:
No Action
simvastatin 40 mg tablet
40 mg PO HS
Neupro 2 mg/24 hour patch 24 hour
2 mg topical HS
hzqusjnnw-prlsnnjn-pdpzufotpu 50-200-200 mg tablet
1 tab PO QID
acetaminophen 500 mg Tablet
1,000 mg PO Q8H PRN (Reason: mild pain)
losartan 50 mg Tablet
50 mg PO DAILY
magnesium hydroxide [Milk of Magnesia] 400 mg/5 mL Suspension
15 ml PO Q72H PRN (Reason: constipation)
metformin 1,000 mg tablet
1,000 mg PO BID
aspirin 81 mg Tablet,Chewable
81 mg PO DAILY
mupirocin 2 % Ointment
1 applic TOPICAL QPM
Rx Instructions:
apply to left 3rd toe
diltiazem HCl 30 mg tablet
30 mg PO BID
melatonin 5 mg Tablet
5 mg PO HS
sennosides [Senna Laxative] 8.6 mg tablet
17.2 mg PO HS
polyethylene glycol 3350 [HealthyLax] 17 gram Powder In Packet
17 g PO DAILY Qty: 30 0RF
Referrals:
Anastacio Morales MD [Family Provider] -
Interventions
Interventions:
*Risk Screen - Suicide Last Done: 12/02/23 08:50
*General Assessment Last Done: 12/02/23 07:51
*Neglect/Abuse Screening Last Done: 12/02/23 08:50
ED- Fall Risk Assessment Last Done: 12/02/23 09:59
*ED COVID-19 Vaccine History Last Done: 12/02/23 07:51
*Nursing Disposition Last Done: 12/02/23 09:59
ED-Skin Assessment Last Done: 12/02/23 08:50
ED-Peripheral Vascular Assessment Last Done: 12/02/23 08:50
ED-Musculoskeletal Assessment Last Done: 12/02/23 08:50
Discharge Date and Time
Discharge Date/Time: 12/02/23 09:59
Print Language: POLISH
[2023-12-02 09:55] VITALS: BP 145/70
[2023-12-02 10:10] LABS: Erythrocyte Sed Rate 58 mm/hour (0-20)
== END 2023-12-02 09:59 | disposition home or self-care (01) ==
LOC: EMR 07:40
PROVIDERS: Physician Assistant Medical; EMERGENCY PHYSICIAN Emergency Medicine; FAMILY PHYSICIAN Internal Medicine
DX: E11.51 Type 2 diabetes mellitus with diabetic peripheral angiopathy without gangrene (principal); T81.31XA Disruption of external operation (surgical) wound, not elsewhere classified, initial encounter; X58.XXXA Exposure to other specified factors, initial encounter; I10 Essential (primary) hypertension; I48.91 Unspecified atrial fibrillation
CPT/HCPCS: 99283; 80053; 85025; 85610; 85652; 86140; 87070; 87071; 87077; 87147; 87186; 87205